=== PATIENT | female | born 2000 | race African-American/Black ===

== ENCOUNTER 2024-06-02 09:13 | Emergency (ER) | payer MEDICAID, SELFPAY ==
[2024-06-02 09:33] VITALS: BP 114/68; PULSE 73; RESP 18; TEMP 36.3; O2SAT 100
--- NOTE | 2024-06-02 10:42 | ED.GENADULT ---
HPI - General Adult General Chief complaint: Skin/Abscess/Foreign Body Stated complaint: Skin/Abscess/Foreign Body Source: patient Mode of arrival: ambulatory Limitations: no limitations History of Present Illness HPI narrative: Patient presents for evaluation of skin lesions to her suprapubic region and buttocks. Symptom onset about 1 week ago. She reports a small amount of sanguinous drainage from one of the suprapubic once yesterday. Denies drainage from the other areas. No fever, chills, nausea, vomiting. She is not diabetic. Family history of hydradenitis suppurativa. Denies personal history of HS. Related Data Home Medications ?Medication ?Instructions ?Recorded ?Confirmed ?Last Taken ?Type hydroxyzine HCl 25 mg tablet mg 06/02/24 Unknown History sertraline 100 mg tablet mg 06/02/24 Unknown History Allergies Allergy/AdvReac Type Severity Reaction Status Date / Time No Known Allergies Allergy Verified 06/02/24 09:39 Review of Systems Review of Systems: CONSTITUTIONAL: Denies fever, chills, or sweats. EYES: Denies visual changes, redness, or discharge. ENT: Denies rhinorrhea, congestion, sore throat, or otalgia. CARDIOVASCULAR: Denies chest pain, palpitations, or edema. RESPIRATORY: Denies cough or dyspnea. GASTROINTESTINAL: Denies abdominal pain, nausea, vomiting, or diarrhea. GENITOURINARY: Denies dysuria or hematuria. SKIN: Reports skin lesions to suprapubic region and buttocks MUSCULOSKELETAL: Denies back pain, joint pain, or myalgia. NEUROLOGIC: Denies headache, numbness, dizziness, or weakness. PSYCHIATRIC: Denies anxiety or depression. [facility] Past Medical History Medical History Anxiety Autism Surgical History Surgical History No pertinent past surgical history Family History Family History Mother Family history unknown Social History Social History Smoking status: Never smoker Living arrangements: with family Gender identity (if verbalized by the patient): Female Exam Narrative: GENERAL: Well-appearing, well-nourished, and in no acute distress. HEAD: Normocephalic, atraumatic. EYES: PERRLA and EOMI. ENT: Nares clear, no rhinorrhea or epistaxis. Mucous membranes moist. Oropharynx without tonsillar hypertrophy exudate or other lesions. Bilateral TMs pearly shetty nonbulging NECK: Supple. No adenopathy or masses. No carotid bruits or JVD CHEST: Clear to auscultation. No respiratory distress. No wheezes rales or rhonchi HEART: Regular rate and rhythm. No murmur heard. Normal peripheral pulses. ABDOMEN: Soft, nontender, nondistended, normal active bowel sounds. EXTREMITIES: Normal range of motion. No edema. SKIN: There are several firm indurated nodules noted to suprapubic region and left buttock, some of which have associated erythema. No drainage present NEURO: No focal deficits. Alert and oriented x3. PSYCH: Normal mood and affect. Course Course Emergency Course: This is a 24-year-old female who presented for evaluation of indurated nodules to the suprapubic region and left buttock. These appear to be areas of folliculitis some of which are infected. Will discharge with Bactrim and Keflex. She already has chlorhexidine with which she can wash her skin at home. Follow up with PCP. Go to the ER for worsening symptoms. Pt in agreement with plan of care. Level of Care: Express Care Visit Vital Signs Vital signs: Vital Signs Temperature 36.3 C L 06/02/24 09:33 Pulse Rate 73 06/02/24 09:33 Respiratory Rate 18 06/02/24 09:33 Blood Pressure 114/68 06/02/24 09:33 Pulse Oximetry 100 06/02/24 09:33 Oxygen Delivery Room Air 06/02/24 09:33 Temperature 36.3 C L 06/02/24 09:33 Pulse Rate 73 06/02/24 09:33 Respiratory Rate 18 06/02/24 09:33 Blood Pressure 114/68 06/02/24 09:33 Pulse Oximetry 100 06/02/24 09:33 Oxygen Delivery Room Air 06/02/24 09:33 Medical Decision Making Vital Signs Vital Signs: Vital Signs Temperature 36.3 C L 06/02/24 09:33 Pulse Rate 73 06/02/24 09:33 Respiratory Rate 18 06/02/24 09:33 Blood Pressure 114/68 06/02/24 09:33 Pulse Oximetry 100 06/02/24 09:33 Oxygen Delivery Room Air 06/02/24 09:33 Temperature 36.3 C L 06/02/24 09:33 Pulse Rate 73 06/02/24 09:33 Respiratory Rate 18 06/02/24 09:33 Blood Pressure 114/68 06/02/24 09:33 Pulse Oximetry 100 06/02/24 09:33 Oxygen Delivery Room Air 06/02/24 09:33 Discharge Plan Discharge Clinical Impression: Folliculitis Patient Disposition: Home, Self-Care Condition: Stable Instructions: Antibiotic Form, Folliculitis (ED) Patient Language: Chinese Prescriptions: New sulfamethoxazole-trimethoprim [Bactrim DS] 800-160 mg tablet 1 tablet PO Q12H Qty: 20 0RF cephalexin 500 mg capsule 500 mg PO Q6H Qty: 40 0RF No Action sertraline 100 mg tablet hydroxyzine HCl 25 mg tablet Follow-up/Referrals: Jd Navarro MD [Physician] - Time of Disposition: 10:35
== END 2024-06-02 10:39 | disposition home or self-care (01) ==
PROVIDERS: Emergency Provider Nurse Practitioner
DX: L73.9 Follicular disorder, unspecified (principal); Z79.899 Other long term (current) drug therapy
CPT/HCPCS: 99203; G0463

== ENCOUNTER 2024-08-31 10:19 | Emergency (ER) | payer BC, OTHER, SELFPAY ==
[2024-08-31 10:28] VITALS: BP 134/73; PULSE 82; RESP 16; TEMP 36.6; O2SAT 100
--- OUTSIDE RECORDS SUMMARY | 2024-08-31 11:30 | XMS_ITS | Clinical Summary ---
Author Organization [facility] Address [address] [place] [address] Care Team Providers Care Senior Animal Trainer Name Role Phone Kimberly Hui MD Primary Care Provider + Allergies Active Allergy Reactions Criticality Noted Date Comments Shellfish-Derived Products Anaphylaxis,F atigue,Hives,I tching,Rash High 10/22/2011 Medications sertraline (ZOLOFT) 100 MG tablet Take 1 tablet (100 mg total) by mouth daily. 08/23/2023 Active hydrOXYzine (ATARAX) 25 MG tablet Take 1 tablet (25 mg total) by mouth every 6 (six) hours as needed for Anxiety. Active drospirenone-eth inyl estradiol 3-0.02 MG tabletIndication s:Hidradenitis suppurativa Take 1 tablet by mouth daily. Skip placebo pills 90 tablet 4 06/24/2024 09/18/19 26 Active cariprazine (VRAYLAR) 1.5 MG capsuleIndicatio ns:Moderate episode of recurrent major depressive disorder (CMS/HCC) Take 1 capsule (1.5 mg total) by mouth daily. 90 capsule 3 06/24/2024 06/24/19 26 Active Active Problems Problem Noted Date Diagnosed Date Prediabetes 07/07/2024 Attention deficit disorder 06/24/2024 Moderate episode of recurrent major depressive d isorder 06/24/2024 Overview (06/24/2024): No hx of bipolar. Neuropscyh testing completed in 2020. Confirmed diagnosis ADD, depression, anxiety, autism, mild cognitive impairment. Taking zoloft since 07/2023. Tried aripiprazole. Not feeling any improvement. Has also tried fluoxetine, abilify. Had tried each of them at least 8 months in [id number]. Assessment & Plan (06/24/2024 9:25 AM STAGE DRIVER): Chronic. Not controlled. Failed multiple medications including SSRIs sertraline, fluoxetine, Abilify which each been taken for more than 8 months. Will trial Vraylar. She does have new insurance starting in July in case her current insurance does not cover well. Mild cognitive impairment 06/24/2024 Morbid obesity 06/24/2024 PCOS (polycystic ovarian syndrome) 06/24/2024 Overview (06/24/2024): Believes she had an ultrasound. Autism ([facility]) 10/22/2020 Overview (06/24/2024): I was diagnosed in 2020 Hidradenitis suppurativa 06/24/2016 Overview (06/24/2024): New cysts forming in the groin and beneath the breasts periodically. Has not been treated in the past. Assessment & Plan (06/24/2024 9:26 AM STAGE DRIVER): Discussed doxycycline is mainstay treatment however she declines that currently as she would prefer to be off antibiotics she is open to hormonal treatment. Trial Neeta. H/O gastric sleeve 12/22/2014 Overview (06/24/2024): 2014. Encounters Date Type Department Care Team Description 07/06/2024 7:30 AM STAGE DRIVER Laboratory Only [facility] [address] [place] [address] Kimberly Hui MD 07/06/2024 MyChart Message Enc [facility] [address] [place], [place] [phone] Kimberly Hui MD Triglycerides 07/06/2024 Travel 06/29/2024 MyChart Message Enc [address] [place] [address] Kimberly Hui MD HPV Vaccine 06/24/2024 8:50 AM STAGE DRIVER Office Visit [address] [place] [address] Kimberly Hui MD New Patient (Here to get established. ); Psychiatric Problem (She states that she is having mental issues. She had to move back in with her parent. ); Lump (Pt is getting boils around her waist line and pubic area. Hx of these. ) 06/24/2024 Travel from Last 3 Months Immunizations Name Administration Dates Next Due Tdap (Generic) 05/26/2021 Family History Medical History Relation Comments Alcohol Abuse Father Depression Father Diabetes Father Hypertension Father Mental Health Father Arthritis Maternal Grandmother Diabetes Maternal Grandmother Alcohol Abuse Mother Asthma Mother Early Hearing Loss Mother Miscarriages / Stillbirths Mother Stroke Paternal Grandmother Drug Abuse Paternal Uncle 1 Vision loss Paternal Uncle 1 Retardation/Learning Difficulties Paternal Uncle 2 Alcohol Abuse Sister 1 Depression Sister 2 Relation Status Comments Father Alive Maternal Grandmother Mother Alive Paternal Grandmother Paternal Uncle 1 Paternal Uncle 2 Sister 1 Alive Sister 2 Alive Social History Tobacco Use Types Packs/Day Years Used Date Smoking Tobacco: Never Passive Smoke Exposure: Past Smokeless Tobacco: Never Tobacco Cessation:Counseling Given: No Alcohol Use Standard Drinks/Week Comments Never 0 (1 standard drink = 0.6 oz pur e alcohol) PHQ-2 Answer Date Recorded Patient Health Questionnaire-2 Score 5 06/24/2024 Comments Unknown Sex and Gender Information Value Date Recorded Sex Assigned at Not on file Legal Sex Female 2:46 PM STAGE DRIVER Gender Identity Female 05/13/2024 1:38 PM STAGE DRIVER Sexual Orientation Bisexual 05/13/2024 1: 38 PM STAGE DRIVER Occupation Industry Job Start Date Job End Date [employer] Not on file Not on file No t on file Last Filed Vital Signs Vital Sign Reading Time Taken Comments Blood Pressure 131/78 06/24/2024 8:42 AM STAGE DRIVER Pulse 89 06/24/2024 8:42 AM STAGE DRIVER Temperature 36.7 C (98 F) 06/24/2024 8:42 AM STAGE DRIVER Respiratory Rate 18 05/10/2024 2:50 PM STAGE DRIVER Oxygen Saturation 100% 06/24/2024 8: 42 AM STAGE DRIVER Inhaled Oxygen Concentration - - Weight 133.7 kg (294 lb 12.8 oz) 06/24/2024 8:42 AM STAGE DRIVER Height 162.6 cm (5' 4 ) 06/24/2024 8:42 AM STAGE DRIVER Body Mass Index 50.6 06/24/2024 8:42 AM STAGE DRIVER Plan of Treatment Upcoming Encounters Date Type Department Care Team (Late st Contact Info) Description 09/24/2024 11:30 AM CDT Office Visit [facility] [place] [address] [place], [place] [phone] Kimberly Hui MD [address] [place], [place] [phone] Health Maintenance Due Date Last Done Comments HPV Vaccines (1 - 3-dose series) 2013 Hepatitis C 01/14/2016 Hepatitis B Vaccines (1 of 3 - 19+ 3-dose series) 2017 COVID-19 Vaccine (2023-2 5 season) 2024 Annual Physical 06/24/2025 06/24/2024 Cervical Cancer Screening Pa p Smear (Age 21 to 29) Every 3 Years 06/25/2026 06/25/2023, 10/29/2022 Cervical Cancer Screening 06/25/2026 DTaP, Tdap and Td Vaccines ( 2 - Td or Tdap) 05/26/2031 05/26/2021 PHQ-2 (Physician [place]) Completed 06/24/2024 Meningococcal B Vaccine Aged Out No l onger eligible based on patient's age to complete this topic Meningococcal Vaccine Aged Out No akira lizeth eligible based on patient's age to complete this topic Pneumococcal Vaccine: Pediatrics (0 to 5 Years) and At-Risk Patients (6 to 64 Years) Aged Out No longer eligible b ased on patient's age to complete this topic RSV Immunizations Under 20 Months Aged Out No longer eligible b ased on patient's age to complete this topic Procedures Procedure Name Priority Date/Time Associated Diagnosis Comments HEMOGLOBIN, GLYCOSYLATED Routine 07/06/2024 7:51 AM STAGE DRIVER Routine general medical examination at a health care facility LIPID PANEL Routine 07/06/2024 7:51 AM STAGE DRIVER Routine general medical examination at a health care facility COLLECTION VENOUS BLOOD VENIPUNCTURE Routine 07/06/2024 7:50 AM STAGE DRIVER Routine general medical examination at a health care facility COMPREHENSIVE METABOLIC PANEL Routine 07/06/2024 7:50 AM STAGE DRIVER Routine general medical examination at a [facility] care facility VITAMIN B-12 Routine 07/06/2024 7:50 AM STAGE DRIVER Routine general medical examination at a [facility] care facility TSH W/REFLEX Routine 07/06/2024 7:50 AM STAGE DRIVER Routine general medical examination at a [facility] care facility CBC W/DIFF AUTOMATED Routine 07/06/2024 7:50 AM STAGE DRIVER H/O gastric sleeve from Last 3 Months Results * (ABNORMAL) HEMOGLOBIN, GLYCOSYLATED (07/06/2024 7:51 AM STAGE DRIVER) [facility] HGB A1C 5.7 4.5 - 6.2 % 07/06/2024 4:55 PM STAGE DRIVER [facility] ESTIMATED AVG GLUCOSE 117(H) 74 - 106 MG/DL 07/06/2024 4:55 PM STAGE DRIVER [facility] 07/06/2024 7:51 AM STAGE DRIVER us Kimberly Hui MD LABORATORY Final Re sult [facility] [address] [place] [address], [place] [phone] * LIPID PANEL (07/06/2024 7:51 AM STAGE DRIVER) [facility] CHOLESTEROL 166 <200 MG/DL 07/06/2024 2:58 PM STAGE DRIVER [facility] TRIGLYCERIDES 58 <150 MG/DL 07/06/2024 2:58 PM STAGE DRIVER [facility] HDL 58 >40 MG/DL 07/06/2024 2:58 PM STAGE DRIVER [facility] LDL-C 96 <100 MG/DL 07/06/2024 2:58 PM STAGE DRIVER [facility] VLDL CALCULATION 12 5 - 28 MG/DL 07/06/2024 2:58 PM STAGE DRIVER [facility] CHOL/HDL RATIO 2.9 0.0 - 4.0 07/06/2024 2:58 PM STAGE DRIVER [facility] LDL/HDL 1.7 0.41 - 2.13 07/06/2024 2:58 PM STAGE DRIVER [facility] NON HDL CHOLESTEROL 108 <140 MG/DL 07/06/2024 2:58 PM STAGE DRIVER [facility] 07/06/2024 7:51 AM STAGE DRIVER Kimberly Hui MD LABORATORY Final Re sult [facility] [address] [place] [address], [place] [phone] * TSH W/REFLEX (07/06/2024 7:50 AM STAGE DRIVER) TSH 0.999 0.358 - 3.740 uIU/ML 07/06/2024 3:39 PM STAGE DRIVER [facility] 07/06/2024 7:50 AM STAGE DRIVER Kimberly Hui MD LABORATORY Final Re sult [facility] [address] [place] [address], [place] [phone] * VITAMIN B-12 (07/06/2024 7:50 AM STAGE DRIVER) VITAMIN B12 S/P/B 570 193 - 986 PG/ML 07/06/2024 3:39 PM STAGE DRIVER [facility] 07/06/2024 7:50 AM STAGE DRIVER us Kimberly Hui MD LABORATORY Final Re [facility]ult [facility] [place] [address] [place] [address], * (ABNORMAL) COMPREHENSIVE METABOLIC PANEL (07/06/2024 7:50 AM STAGE DRIVER) SODIUM S/P/B 141 136 - 145 MMOL/L 07/06/2024 3:39 PM STAGE DRIVER [facility] POTASSIUM S/P/B 4.3 3.5 - 5.1 MMOL/L 07/06/2024 3:39 PM STAGE DRIVER [facility] CHLORIDE S/P/B 105 98 - 107 MMOL/L 07/06/2024 3:39 PM STAGE DRIVER [facility] CO2 28.2 21 - 32 MMOL/L 07/06/2024 3:39 PM STAGE DRIVER [facility] GLUCOSE 102(H) 70 - 99 MG/DL 07/06/2024 3:39 PM STAGE DRIVER [facility] BUN 7 7 - 18 MG/DL 07/06/2024 3:39 PM STAGE DRIVER [facility] CREATININE S/P/B 0.80 0.55 - 1.02 MG/DL 07/06/2024 3:39 PM STAGE DRIVER [facility] CALCIUM S/P/B 8.8 8.4 - 10.5 MG/DL 07/06/2024 3:39 PM STAGE DRIVER [facility] BILIRUBIN TOTAL S/P/B 0.2 0.2 - 1.0 MG/DL 07/06/2024 3:39 PM STAGE DRIVER [facility] [place] ALKALINE PHOSPHATASE S/P/B 49 37 - 98 U/L 07/06/2024 3:39 PM [facility] [place] AST 26 15 - 37 U/L 07/06/2024 3:39 PM [facility] [place] ALT 47 14 - 59 U/L 07/06/2024 3:39 PM [facility] TOTAL PROTEIN S/P/B 6.8 6.4 - 8.2 G/DL 07/06/2024 3:39 PM [facility] [place] ALBUMIN S/P/B 3.3(L) 3.4 - 5.0 G/DL 07/06/2024 3:39 PM [facility] ANION GAP 7.8 5 - 15 MMOL/L 07/06/2024 3:39 PM [facility] Comment:REFERENCE RANGE NOT ESTABLISHED OSMOLALITY (CALC) 290 MOSM/KG 025 3:39 PM [facility] Comment:REFERENCE RANGE NOT ESTABLISHED GFR ESTIMATE >90 >90 ML/MIN/1. 73 M2 07/06/2024 3:39 PM [facility] GFR NOTES GFR REFERENCE S: 07/06/2024 3:39 PM [facility] [place] Comment: THE ESTIMATED GFR IS CALCULATED USING THE 2020 CKD-EPI EQUATION. THE FOLLOWING CATEGORIES FOR GRADING RENAL FUNCTION ARE RECOMMENDED BY THE INTERNATIONAL SOCIETY OF NEPHROLOGY (KDIGO 2012 CLINICAL PRACTICE GUIDELINE). G1,NORMAL OR HIGH: >89 ml/min/1.73 m2 G2,MILDLY DECREASED: 60-89 ml/min/1.73 m2 G3A,MILDLY TO MODERATELY DECREASED: 45-59 ml/min/1.73 m2 G3B,MODERATELY TO SEVERELY DECREASED: 30-44 ml/min/1.73 m2 G4,SEVERELY DECREASED: 15-29 ml/min/1.73 m2 G5,KIDNEY FAILURE: <15 ml/min/1.73 m2 07/06/2024 7:50 AM STAGE DRIVER Kimberly Hui MD LABORATORY Final Re sult [facility] [place] [address] [place] [address], * (ABNORMAL) CBC W/DIFF AUTOMATED (07/06/2024 7:50 AM STAGE DRIVER) WBC 3.22(L) 4.00 - 10.80 x10'3/uL 07/06/2024 4:15 PM STAGE DRIVER [facility] RBC 4.07(L) 4.10 - 5.40 x10'6/uL 07/06/2024 4:15 PM STAGE DRIVER [facility] HGB 11.8(L) 12.0 - 16.0 G/DL 07/06/2024 4:15 PM STAGE DRIVER [facility] HCT 36.4 36.0 - 47.0 % 07/06/2024 4:15 PM STAGE DRIVER [facility] MCV 89.4 78.0 - 100.0 FL 07/06/2024 4:15 PM STAGE DRIVER [facility] MCH 29.0 27.0 - 31.0 PG 07/06/2024 4:15 PM STAGE DRIVER [facility] MCHC 32.4(L) 33.0 - 36.0 G/DL 07/06/2024 4:15 PM STAGE DRIVER [facility] RDW 12.9 11.5 - 14.5 % 07/06/2024 4:15 PM STAGE DRIVER [facility] PLT 318 150 - 350 x10'3/uL 07/06/2024 4:15 PM [facility] MPV 10.4 7.4 - 10.4 FL 07/06/2024 4:15 PM STAGE DRIVER [facility] IMMATURE GRANS % 0.0 % 07/06/19 25 4:23 PM STAGE DRIVER [facility] NEUTROPHILS % 42.6 % 07/06/2024 4:23 PM [facility] EOSINOPHILS % 1.9 % 07/06/2024 4:23 PM [facility] BASOPHILS % 1.2 % 07/06/2024 4:23 PM [facility] LYMPHOCYTES % 44.7 % 07/06/2024 4:23 PM [facility] MONOCYTES % 9.6 % 07/06/2024 4:23 PM [facility] ABS. NEUTROPHILS 1.37(L) 1.60 - 8.30 x10'3/uL 07/06/2024 4:23 PM [facility] ABS. IMMATURE GRANULOCYTES 0.00 0.00 - 0.03 x10'3/uL 07/06/2024 4:23 PM [facility] ABS. EOSINOPHILS 0.06 0.00 - 0.40 x10'3/uL 07/06/2024 4:23 PM [facility] ABS. BASOPHILS 0.04 0.00 - 0.20 x10'3/uL 07/06/2024 4:23 PM [facility] ABS. LYMPHOCYTES 1.44 0.80 - 4.70 x10'3/uL 07/06/2024 4:23 PM [facility] ABS. MONOCYTES 0.31 0.00 - 1.50 x10'3/uL 07/06/2024 4:23 PM [facility] RBC MORPHOLOGY NORMAL 07/06/2024 4:23 PM [facility] PLT MORPH. NORMAL 07/06/2024 4:23 PM [facility] PLT EST. NORMAL x10'3/uL 07/06/2024 4:23 PM [facility] Comment:Few large Platelets present. DIFFERENTIAL TYPE AUTO-DIFF VERIFIED BY BLOOD SMEAR SCAN. 07/06/2024 4:23 PM [facility] 07/06/2024 7:50 AM STAGE DRIVER us Kimberly Hui MD LABORATORY Final Re sult [facility] [address] [place] [address], [place] [phone] from Last 3 Months Insurance [facility] Care Teams Senior Animal Trainer Relationship Specialty Start Date End Date Kimberly Hui MD [address] [address] PCP - General FAMILY PRACTICE 06/24/24
--- OUTSIDE RECORDS SUMMARY | 2024-08-31 11:30 | XMS_ITS | Encounter Summary ---
Author Organization [facility] Address [address] [place] [id number] Care Team Providers Care Employment Advisor Name Role Phone Kimberly Hui MD Primary Care Provider + Encounter Details Date Type Department Care Team (Late st Contact Info) Description 07/06/2024 MyChart Message Enc [facility] [address] [place] [phone] Kimberly Hui MD [address] [place] [phone] Triglycerides Social History Tobacco Use Types Packs/Day Years Used Date Smoking Tobacco: Never Passive Smoke Exposure: Past Smokeless Tobacco: Never Alcohol Use Standard Drinks/Week Comments Never 0 (1 standard drink = 0.6 oz pur e alcohol) PHQ-2 Answer Date Recorded Patient Health Questionnaire-2 Score 5 06/24/2024 Comments Unknown Sex and Gender Information Value Date Recorded Sex Assigned at Not on file Legal Sex Female 2:46 PM CHILD NUTRITION ASSISTANT Gender Identity Female 05/13/2024 1:38 PM CHILD NUTRITION ASSISTANT Sexual Orientation Bisexual 05/13/2024 1: 38 PM CHILD NUTRITION ASSISTANT Occupation Industry Job Start Date Job End Date [employer] Not on file Not on file No t on file documented as of this encounter Plan of Treatment Upcoming Encounters Date Type Department Care Team (Late st Contact Info) Description 09/24/2024 11:30 AM CDT Office Visit [facility] [address] [place] [phone] Kimberly Hui MD [address] [place], [place] [address] documented as of this encounter Visit Diagnoses Not on filedocumented in this encounter Additional Health Concerns Assessment Noted Time PHQ-9 Depression Total Score: 19 025 10:50 AM CHILD NUTRITION ASSISTANT documented as of this encounter Care Teams Employment Advisor Relationship Specialty Start Date End Date Kimberly Hui MD [address] [place] [address] PCP - General FAMILY PRACTICE 06/24/24 documented as of this encounter
--- OUTSIDE RECORDS SUMMARY | 2024-08-31 11:30 | XMS_ITS | Continuity of Care Document ---
Author Organization [facility] Address [address] [place] [address] Phone Care Team Providers Care Freedom Of Information Officer Name Role Phone Yolanda Cerna PA-C Unavailable Unavailabl e Allergies, Adverse Reactions, Alerts Substance Reaction Status Criticality shellfish derived Unknown Active Unable to Assess Medications Medication Instructions Dosage Effective Dates (start - stop) Status Comments sertraline 100 mg tablet take 1 tablet by oral route every day 100 MG - Active hydroxyzine HCl 25 mg tablet take 1/2 to 2 tablets by oral route as needed for anxiety or difficulty sleeping. Max 4 tablets per day. - Active VITAMINS (unknown strength) Not Available - Active Procedures Procedure Date Case management OFFICE/OUTPATIENT VISIT, EST Telehealth Video Visit PSYTX, 30 MIN W/PT Telehealth Video Visit PSYTX, 45 MIN W/PT Telehealth Video Visit PSYTX, 30 MIN W/PT Telehealth Video Visit PSYTX, 45 MIN W/PT Telehealth Audio Visit Telehealth Video Visit OFFICE/OUTPATIENT VISIT, EST Telehealth Video Visit PSYTX, 45 MIN W/PT Telehealth Video Visit PSYTX, 45 MIN W/PT Case management PSYTX, 45 MIN W/PT Telehealth Video Visit Telehealth Video Visit OFFICE/OUTPATIENT VISIT, EST Telehealth Video Visit PSYTX, 45 MIN W/PT Case Management 15 Minutes Case management Telehealth Video Visit PSYTX, 45 MIN W/PT Telehealth Video Visit PSYCH DIAG EVAL W/MED SRVCS Case management Telehealth Video Visit PSYTX, 45 MIN W/PT PSYTX, 45 MIN W/PT Telehealth Video Visit PSYTX, 45 MIN W/PT Telehealth Video Visit Self-help/peer svc per 15min Telehealth Audio Visit OFFICE/OUTPATIENT VISIT, EST PSYTX, 45 MIN W/PT Telehealth Video Visit PSYTX, 60 MIN W/PT Telehealth Video Visit PSYTX, 60 MIN W/PT Telehealth Video Visit Enc Recon Telehealth Video Visit PSYCH DIAG EVAL W/MED SRVCS PSYTX, 45 MIN W/PT Telehealth Video Visit PSYTX, 60 MIN W/PT Telehealth Video Visit Telehealth Video Visit PSYCH DIAGNOSTIC EVALUATION PSYTX, 30 MIN W/PT Telehealth Video Visit PSYTX, 30 MIN W/PT Telehealth Video Visit CMVC Case Managment (less than 8 minutes ) Telehealth Video Visit OFFICE/OUTPATIENT VISIT, EST PSYTX, 45 MIN W/PT Telehealth Video Visit PSYTX, 45 MIN W/PT Telehealth Video Visit Telehealth Video Visit OFFICE/OUTPATIENT VISIT, EST Telehealth Video Visit OFFICE/OUTPATIENT VISIT, EST PSYTX, 45 MIN W/PT Telehealth Video Visit Telehealth Video Visit OFFICE/OUTPATIENT VISIT, EST PSYTX PT&/FAMILY 45 MINUTES Telehealth Video Visit PSYTX PT&/FAMILY 45 MINUTES Telehealth Video Visit Telehealth Video Visit OFFICE/OUTPATIENT VISIT, EST Telehealth Video Visit OFFICE/OUTPATIENT VISIT, EST PSYTX PT&/FAMILY 45 MINUTES Telehealth Video Visit CM[facility] (less than 8 minutes) Telehealth Video Visit OFFICE/OUTPATIENT VISIT, EST PSYTX PT&/FAMILY 45 MINUTES Telehealth Video Visit PSYTX PT&/FAMILY 45 MINUTES Telehealth Video Visit IMMUNIZATION ADMIN FLU VACCINE QUADRIVALENT >3YRS Preservat munira Free OFFICE/OUTPATIENT VISIT, EST STREP A ASSAY W/OPTIC PSYTX PT&/FAMILY 30 MINUTES Telehealth Video Visit PSYTX PT&/FAMILY 30 MINUTES Telehealth Video Visit PSYTX PT&/FAMILY 30 MINUTES Telehealth Video Visit PSYTX PT&/FAMILY 45 MINUTES Telehealth Video Visit Telehealth Audio Visit Telehealth Video Visit Telehealth Audio Visit OFFICE/OUTPATIENT VISIT, EST PSYTX PT&/FAMILY 45 MINUTES Telehealth Video Visit OFFICE/OUTPATIENT VISIT, EST STREP A ASSAY W/OPTIC SARS Telehealth Video Visit PSYCH DIAG EVAL W/MED SRVCS Telehealth Video Visit PSYCH DIAGNOSTIC EVALUATION OFFICE/OUTPATIENT VISIT, [facility] Advance Directives Directive Yes / No Effective Date File Name No Information Encounters Encounter Description Practice Location Reason(s) For Visit Diagnoses Date Provider Providers Copied on Encounter [facility], [address], [place], [address] , [place] [phone] [place] Major depression, recurrent, chronic Sep- 4 Eryn Guerrero. [address], [place], [address], [place]. tel:[phone] [facility], [address] [place] [address], [id number] , [place] tel:[phone] [facility] Major depression, recurrent, chronic Oct- 4 Terry Tobar. [address], [place], [address], [place]. tel:[phone] Referring Provider: Yolanda Cerna, [address] [place], [address]. tel:[phone] OFFICE/OUTPA TIENT VISIT, EST [facility], [address], [address] , [place] tel: [phone] [place] med management (chief complaint) Major depressive disorder, recurrent, moderateGener alized anxiety disorderAutis m spectrum disorderAtten tion-deficit hyperactivity disorder, predominantly inattentive typePersonal history of psychological abuse in childhood 4 Eryn Guerrero. [address] [facility], [place], [address], [place]. tel:[phone] PSYTX, 30 MIN W/PT [facility], [address], [place], [place], [address] , [place] tel: [phone] [place] Major depressive disorder, recurrent, moderateSibli ng Relational ProblemGenera lized anxiety disorder 4 Pool Brown. [address], [place], [place], [address], [place]. tel:[phone] PSYTX, 45 MIN W/PT [facility], [address], [place], [place], [address] , [place] tel: [phone] [place] Generalized anxiety disorderPerso nal history of psychological abuse in childhood 4 Pool Brown. [address], [place], [place], [address], [place]. tel:[phone] PSYTX, 30 MIN W/PT [facility], [address], [place], [place], [address] , [place] tel: [phone] [place] Generalized anxiety disorder 4 Pool Brown. [address], [place], [place], [address], [place]. tel:[phone] PSYTX, 45 MIN W/PT [facility], [address], [place], [place], [address] , [place] tel: [phone] [place] Generalized anxiety disorderPerso nal history of psychological abuse in childhood 4 Pool Brown. [address], [place], [place], [address], [place]. tel:[phone] OFFICE/OUTPA TIENT VISIT, EST [facility], [address], [place], [place], [address] , [place] tel:[phone] [place] med management (chief complaint) Major depressive disorder, recurrent, moderateGener alized anxiety disorderAutis m spectrum disorderAtten tion-deficit hyperactivity disorder, predominantly inattentive typePersonal history of psychological abuse in childhood 4 Eryn Guerrero. [address], [place], [address], [place]. tel:[phone] PSYTX, 45 MIN W/PT [facility], [address], [place], [place], [address] , [place] tel:[phone] [place] Major depressive disorder, recurrent, moderateSibli ng Relational ProblemAutism spectrum disorderAtten tion-deficit hyperactivity disorder, predominantly inattentive type 4 Pool Brown. [address], [place], [place], [address], [place]. tel:[phone] Referring Provider: Haydee Viera, [address] [place], [address]. tel:[phone] PSYTX, 45 MIN W/PT [facility], [address], [place], [place], [address] , [place] [phone] [place] Major depressive disorder, recurrent, moderatePerso nal history of psychological abuse in childhood 4 Pool Brown. [address], [place], [place], [address], [place]. tel:[phone] Referring Provider: Yolanda Cerna, [address] [place], [address]. tel:[phone] [facility], [address], [place], [place], [address] , [place] tel:[phone] [place] FFS Major depressive disorder, recurrent, moderate Apr- 4 Ansures De Jimenez Dania. [address], [place], [address], [place]. [phone] Referring Provider: Zee Cash, [address] [place], [address]. tel:[phone] PSYTX, 45 MIN W/PT [facility], [address], [place], [place], [address] , [place] tel:[phone] [place] Major depressive disorder, recurrent, moderatePerso nal history of psychological abuse in childhood Apr-06 27- 4 Pool Brown. [address], [place], [place], [address], [place]. [phone] OFFICE/OUTPA TIENT VISIT, EST [facility], [address], [place], [place], [address] , [place] tel:[phone] [place] med management (chief complaint) Major depressive disorder, recurrent, moderateGener alized anxiety disorderAtten tion deficit hyperactivity disorder (ADHD), unspecified ADHD typeAutism spectrum disorderPerso nal history of psychological abuse in childhood Aug- 4 Eryn Guerrero. [address], [place], [address], [place]. tel:[phone] PSYTX, 45 MIN W/PT [facility], [address], [place], [place], [address] , [place] [phone] [place] Major depressive disorder, recurrent, moderate Apr- 4 Pool Brown. [address], [place], [place], [address], [place]. tel:[phone] Referring Provider: Haydee Viera, [address] [place], [address]. tel:[phone] [facility], [address], [place], [place], [address] , [place] tel:[phone] [facility] FFS Major depressive disorder, recurrent, moderate Apr-1 0-202 4 Ansures De Jimenez Dania. [address], [place], [address], [place]. tel:[phone] Referring Provider: Zee Cash, [address] [place], [address]. tel:[phone] [facility], [address], [place], [place], [address] , [place] [phone] [facility] FFS Major depressive disorder, recurrent, moderate Apr-0 9-202 4 Ansures De Jimenez Dania. [address], [place], [address], [place]. tel:[phone] Referring Provider: Yolanda Cerna, [address] [place], [address]. tel:[phone] PSYTX, 45 MIN W/PT [facility], [address], [place], [place], [address] , [place] [phone] [place] Major depressive disorder, recurrent, moderateAutis m spectrum disorder Apr-0 8-202 4 Pool Brown. [address], [place], [place], [address], [place]. tel:[phone] PSYCH DIAG EVAL W/MED SRVCS [facility], [address], [place], [place], [address] , [place] [phone] [place] psychiatric evaluation and consult (chief complaint) Major depressive disorder, recurrent, moderateGener alized anxiety disorderAtten tion-deficit hyperactivity disorder, predominantly inattentive typeAutism spectrum disorderSenso ry processing difficultyPer kandace history of psychological abuse in childhood Apr-0 5- 4 Eryn Guerrero. [address], [place], [address], [place]. tel:[phone] [facility], [address], [place], [place], [address] , [place] tel:[phone] [facility] FFS Major depressive disorder, recurrent, moderate Apr-0 2- 4 Ansures De Tony Najera. [address], [place], [address], [place]. tel:[phone] Referring Provider: Zee Cash, [address] [place], [address]. tel:[phone] PSYTX, 45 MIN W/PT [facility], [address], [place], [place], [address] , [place] tel:[phone] [place] Major depressive disorder, recurrent, moderateGener alized anxiety disorder Apr-0 4 Pool Brown. [address], [place], [place], [address], [place]. tel:[phone] Referring Provider: Shawn William, [address], [place], [address]. tel:[phone] [facility], [address], [place], [place], [address] , [place] tel:[phone] [place] Major depressive disorder, recurrent, moderateAutis m spectrum disorderGener alized anxiety disorder Nov- 3 Pool Brown. [address], [place], [place], [address], [place]. tel:[phone] PSYTX, 45 MIN W/PT [facility], [address], [place], [place], [address] , [place] tel:[phone] [place] Major depressive disorder, recurrent, moderateAutis m spectrum disorder 3 Lanza Stephanie. [address], [place], [place], [address], [place]. tel:[phone] Referring Provider: Haydee Viera, [facility] [place], [address]. tel:[phone] PSYTX, 45 MIN W/PT [facility], [address], [place], [place], [address] , [place] tel:[phone] [place] Autism spectrum disorderMajor depressive disorder, recurrent, moderate 3 Pool Stephanie. [address], [place], [place], [address], [place]. tel:[phone] Referring Provider: Haydee Viera, [facility] [place], [address]. tel:[phone] [facility], [address], [place], [place], [address] , [place] tel:[phone] [facility] [place] [facility] FFS Adjustment disorder with mixed anxiety and depressed moodAttention -deficit hyperactivity disorder, predominantly inattentive typeAutism spectrum disorderDiffi culty controlling angerGenerali zed anxiety disorderPerso nal history of psychological abuse in childhood 3 Jayson Jamison. [address], [place], [address], [place]. tel:[phone] Referring Provider: Omer Jennings, [address] [place], [address]. tel:[phone] OFFICE/OUTPA TIENT VISIT, EST [facility], [address], [place], [place], [address] , [place] tel:[phone] [place] Medication Follow Up (chief complaint) Adjustment disorder with mixed anxiety and depressed moodAttention -deficit hyperactivity disorder, predominantly inattentive typeAutism spectrum disorderDiffi culty controlling angerGenerali zed anxiety disorderPerso nal history of psychological abuse in childhood 3 Michaela Tello. [address], [place], [address], [place]. tel:[phone] Referring Provider: Omer Jennings, [address] [place], [address]. tel:[phone] PSYTX, 45 MIN W/PT [facility], [address], [place], [place], [address] , [place] tel:[phone] [place] Generalized anxiety disorderPerso nal history of psychological abuse in childhood 3 Pool Brown. [address], [place], [place], [address], [place]. tel:[phone] Referring Provider: Haydee Viera, [address] [place] [address], [address]. tel:[phone] PSYTX, 60 MIN W/PT [facility], [address], [place], [place], [address] , [place] tel:[phone] [place] Generalized anxiety disorderPerso nal history of psychological abuse in childhood 3 Pool Brown. [address], [place], [place], [address], [place]. tel:[phone] Referring Provider: Federica Millan, [address], [place], [address]. tel:[phone] PSYTX, 60 MIN W/PT [facility], [address], [place], [place], [address] , [place] tel:[phone] [place] Generalized anxiety disorderPerso nal history of psychological abuse in childhood 3 Pool Brown. [address], [place], [place], [address], [place]. tel:[phone] Referring Provider: Bruce Sigala, [address] [place] [address], [address]. tel:[phone] [facility], [address], [place], [place], [address] , [place] [phone] [facility] FFS Generalized anxiety disorderPerso nal history of psychological abuse in childhood 3 Jayson Jamison. [address], [place], [address], [place]. tel:[phone] Referring Provider: Omer Jennings, [address] [place], [address]. tel:[phone] PSYCH DIAG EVAL W/MED SRVCS [facility], [address], [place], [place], [address] , [place] [phone] [facility] Psychiatric Evaluations (chief complaint) Generalized anxiety disorderMajor depressive disorder, recurrent, moderateAtten tion-deficit hyperactivity disorder, predominantly inattentive typeDifficult y controlling angerAutism spectrum disorderSenso ry processing difficultyPer kandace history of psychological abuse in childhood 3 Michaela Tello. [address], [place], [address], [place]. tel:[phone] Referring Provider: Omer Jennings, [address] [place], [address]. tel:[phone] PSYTX, 45 MIN W/PT [facility], [address], [place], [place], [address] , [place] [phone] [place] Generalized anxiety disorderPerso nal history of psychological abuse in childhood 3 Pool Brown. [address], [place], [place], [address], [place]. tel:[phone] Referring Provider: Federica Millan, [address], [place], [address]. tel:[phone] PSYTX, 60 MIN W/PT [facility], [address], [place], [place], [address] , [place] tel:[phone] [place] Generalized anxiety disorder 3 Pool Brown. [address], [place], [place], [address], [place]. tel:[phone] Referring Provider: Haydee Viera, [address] [facility], [place], [address]. tel:[phone] PSYCH DIAGNOSTIC EVALUATION [facility], [address], [place], [place], [address] , [place] tel:[phone] [place] Adjustment disorder with mixed anxiety and depressed mood 3 Caleb Mccollum. [address] [place], [place], [address], [place]. [phone] Referring Provider: Osiris León, [address] [place], [address]. tel:[phone] [facility], [address], [place], [place], [address] , [place] tel:[phone] [place] Major depressive disorder, recurrent, moderateGener alized anxiety disorderAutis m 2 Pool Brown. [address], [place], [place], [address], [place]. tel:[phone] PSYTX, 30 MIN W/PT [facility], [address], [place], [place], [address] , [place] tel:[phone] [place] Major depressive disorder, recurrent, moderate 2 Pool Brown. [address], [place], [place], [address], [place]. tel:[phone] Referring Provider: Stephanie Lanza, [address], [place], [address]. tel:[phone] PSYTX, 30 MIN W/PT [facility], [address], [place], [place], [address] , [place] tel:[phone] [place] Major depressive disorder, recurrent, moderateGener alized anxiety disorder 2 Pool Brown. [address], [place], [place], [address], [place]. tel:[phone] Referring Provider: Stephanie Lanza, [address], [place], [address]. tel:[phone] [facility], [address], [place], [place], [address] , [place] tel:[phone] [place] FFS No Information 2 Elenita Serrano. [address], [place], [address], [place]. tel:[phone] Referring Provider: Maggie Huang, [address] [place], [address]. tel:[phone] OFFICE/OUTPA TIENT VISIT, EST [facility], [address], [place], [place], [address] , [place] tel:[phone] [place] medication management (chief complaint) Generalized anxiety disorderAutis mMajor depressive disorder, recurrent, moderateAtten tion-deficit hyperactivity disorder, predominantly inattentive typeMarijuana use 2 Mau Newell. [address] [place], [place], [address], [place]. tel:[phone] Referring Provider: Osiris León, [address] [place], [address]. tel:[phone] PSYTX, 45 MIN W/PT [facility], [address], [place], [place], [address] , [place] tel:[phone] [place] Major depression, recurrent, chronic 2 Pool Brown. [address], [place], [place], [address], [place]. tel:[phone] Referring Provider: Stephanie Lanza, [address], [place], [address]. tel:[phone] PSYTX, 45 MIN W/PT [facility], [address], [place], [place], [address] , [place] tel:[phone] [place] Major depression, recurrent, chronicSiblin g Relational Problem September- 2 Pool Brown. [address], [place], [place], [address], [place]. tel:[phone] Referring Provider: Stephanie Lanza, [address], [place], [address]. tel:[phone] OFFICE/OUTPA TIENT VISIT, EST [facility], [address], [place], [place], [address] , [place] [phone] [place] medication management (chief complaint) Major depression, recurrent, chronicGenera lized anxiety disorderAutis mAttention and concentration deficit 2 Mau Newell. [address] [place] [address], [address], [place]. [phone] Referring Provider: Osiris León, [address] [place] [address], [address]. [phone] OFFICE/OUTPA TIENT VISIT, EST [facility], [address], [place], [place], [address] , [place] [phone] [place] medication management (chief complaint) Major depression, recurrent, chronicSiblin g Relational ProblemGenera lized anxiety disorderAutis mAttention and concentration deficit 2 Mau Newell. [facility] [address] [place], [place], [address], [place]. tel:[phone] Referring Provider: Osiris León, [facility] [place], [address]. tel:[phone] PSYTX, 45 MIN W/PT [facility], [address], [place], [place], [address] , [place] [phone] [place] Major depression, recurrent, chronicSiblin g Relational Problem 2 Pool Brown. [address], [place], [place], [address], [place]. tel:[phone] Referring Provider: Stephanie Lanza, [address], [place], [address]. tel:[phone] OFFICE/OUTPA TIENT VISIT, EST [facility], [address], [place], [place], [address] , [place] [phone] [place] medication management (chief complaint) Major depression, recurrent, chronicGenera lized anxiety disorderAtten tion and concentration deficit 2 Mau Newell. [address] [place] [address], [address], [place]. tel:[phone] Referring Provider: Osiris León, [address] [place] [address], [address]. tel:[phone] PSYTX PT&/FAMILY 45 MINUTES [facility], [address], [place], [place], [address] , [place] tel:[phone] [place] Major depression, recurrent, chronicGenera lized anxiety disorder 2 Pool Brown. [address], [place], [place], [address], [place]. tel:[phone] Referring Provider: Stephanie Lanza, [address], [place], [address]. tel:[phone] PSYTX PT&/FAMILY 45 MINUTES [facility], [address], [place], [place], [address] , [place] [phone] [place] Major depression, recurrent, chronicGenera lized anxiety disorder 2 Pool Brown. [address], [place], [place], [address], [place]. tel:[phone] Referring Provider: Stephanie Lanza, [address], [place], [address]. tel:[phone] OFFICE/OUTPA TIENT VISIT, EST [facility], [address], [place], [place], [address] , [place] tel:[phone] [place] medication management (chief complaint) Major depression, recurrent, chronicGenera lized anxiety disorderImpul sivenessAtten tion and concentration deficit 2 Mau Newell. [address] [place] [address], [address], [place]. tel:[phone] Referring Provider: Osiris León, [address] [place] [address], [address]. tel:[phone] OFFICE/OUTPA TIENT VISIT, EST [facility], [address], [place], [place], [address] , [place] [phone] [place] medication management (chief complaint) Major depression, recurrent, chronicGenera lized anxiety disorderImpul sivenessAtten tion and concentration deficit 2 Mau Newell. [address] [place] [address], [address], [place]. tel:[phone] Referring Provider: Osiris León, [address] [place] [address], [address]. tel:[phone] PSYTX PT&/FAMILY 45 MINUTES [facility], [address], [place], [place], [address] , [place] [phone] [place] Major depression, recurrent, chronicGenera lized anxiety disorderImpul sivenessAtten tion and concentration deficit 2 Pool Brown. [address], [place], [place], [address], [place]. tel:[phone] Referring Provider: Stephanie Lanza, [address], [place], [address]. tel:[phone] [facility], [address], [place], [place], [address] , [place] tel:[phone] [facility] 1 Deacon Claudette. [address] [facility], [place], [place], [address], [place]. tel:[phone] Referring Provider: Claudette Worthy, [address] [facility] [address], [place], [address]. tel:[phone] OFFICE/OUTPA TIENT VISIT, [facility], [address], [place], [id number] , [place] tel:[phone] [place] medication management (chief complaint) Major depression, recurrent, chronicGenera lized anxiety disorderImpul sivenessAtten tion and concentration deficit 1 Mau Newell. [address] [place] [address], [id number], [place]. tel:[phone] Referring Provider: Osiris León, [address] [place] [address], [address]. tel:[phone] PSYTX PT&/FAMILY 45 MINUTES [facility], [address], [place], [place], [id number] , [place] tel:[phone] [place] Major depression, recurrent, chronicGenera lized anxiety disorderImpul sivenessAtten tion and concentration deficitAnxiet y depression 1 Pool Brown. [address], [place], [id number], [place]. tel:[phone] Referring Provider: Stephanie Lanza, [address], [place], [address]. tel:[phone] PSYTX PT&/FAMILY 45 MINUTES [facility], [address], [place], [place], [id number] , [place] [phone] Mck[place] Major depression, recurrent, chronicGenera lized anxiety disorderImpul sivenessAtten tion and concentration deficitAnxiet y depression 1 Pool Brown. [address], [place], [place], [id number], [place]. tel:[phone] Referring Provider: Bruce Sigala, [address] [facility], [place], [address]. tel:[phone] OFFICE/OUTPA TIENT VISIT, [facility], [address], [place], [place], [id number] , [place] [phone] [place] rash (chief complaint) Viral rashBody mass index (BMI) 40.0-44.9, adultEncounte r for immunizationA cute viral pharyngitis 1 LILIAM BATEMAN. [address], [place], [place], [id number], [place]. tel:[phone] Referring Provider: FRANSICO RICKETTS, [address], [place], [address]. tel:[phone] PSYTX PT&/FAMILY 30 MINUTES [facility], [address], [place], [place], [id number] , [place] tel:[phone] [place] Major depression, recurrent, chronicGenera lized anxiety disorderImpul sivenessAtten tion and concentration deficitAnxiet y depression 1 Pool Brown. [address], [place], [place], [id number], [place]. tel:[phone] Referring Provider: Stephanie Lanza, [address], [place], [address]. tel:[phone] PSYTX PT&/FAMILY 30 MINUTES [facility], [address], [place], [place], [id number] , [place] tel: [phone] Mck[place] Major depression, recurrent,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 homicidal ideation and does not present with symptoms of psychosis or jared. Thought content was devoid of auditory, visual or tactile hallucinations and no acute psychosis or jared is observed. Patient does not exhibit feelings of paranoia, suspicion or derealization. Patient is alert and oriented to person, place, date and time (A&Ox3). Attention, concentration and memory are grossly intact. Judgment and insight are both appropriate given patient's age. Patient exhibits capacity to understand the consequences of their own behaviors and ability to make decisions to ensure the safety of self and others. medication management Telemedici ne was performed per regulatory requirements as the practice of health care delivery, diagnosis, consultation and treatment and the transfer of medical data between the originating and distant sites through real time interactive video/audio communications that occur in the physical presence of the member. The patient expressed understanding of the information provided regarding telehealth/telemedicine, all of their questions have been answered to the patient's satisfaction and verbal informed consent for the use of telehealth/telemedicine was provided to this provider. Patient has a right to rescind the use of telecommunication recording at any time. If applicable, consent forms will be obtained as soon as patient can have an in-person visit.Pt with MDD, JOAN, impulsivity, and attention and concentration deficit diagnosed by a neuropsychologist. Pt reports they are taking the prescribed medication consistently. She reports she's still emotional but thinks it's due to life stressors. Reports depression and anxiety sx persist but are better overall with Abilify. After 5 wks of increased dose to 5 mg she reports she's not sure if this has been of benefit or not. Side effects: denies. Akathisia: denies. Denies SI/HI. medication management Pt with MD Smith, JOAN, impulsivity, and attention and concentration deficit diagnosed by a neuropsychologist.Pt states she hasn't had a tantrum in a long time. Sleeping better. Pt has started crying more. Has had a lot of life stress. Pt has straight As and accomodations in school, doesn't want to start rx for concentration defiti. Denies SI/HI. DOS 12/2020: Pt with MDD, JOAN, impulsivity, and attention and concentration deficit diagnosed by a neuropsychologist. Pt is stable with no SI, but due to insurance issues was only able to start Abilify today. Sx are unchanged. Will continue to monitor for side effects..-Continue Abilify 2 mg. Discussed possible side effects including to let me know if she has feelings of restlessness.-Continue other medications as prescribed-CONTINUE Counseling-Keep your appointments with other healthcare providers rash The patient pres ents for rash. This episode began 3 days ago. The symptom(s) are described as resolved. Affected area(s) are scattered on the body including hand(s) and feet. The patient denies aggravating factors such as sun exposure and soaps. Pertinent negatives include sore throat. Additional information: recent exposure at her place of work ([facility] depression/anxiety/d ifficulty concentrating depression/anxiety/d ifficulty concentrating (comments) Patient with hx of MDD, JOAN and diagnosis from neuropsychologist with Autism Spectrum Disorder, mild cognitive impairment, memory loss, attention-concentration deficit. Pt explains due to insurance issues, she picked up Abilify 2 mg today and has taken one dose. She reports dizziness when she took it on an empty stomach, but otherwise denies side effects. Depression.Pt reports sx are unchanged and severe. Continues to have difficulty staying asleep, anhedonia, fatigue, decreased concentration, appetite increase. Denies self-harm. Anxiety: She reports anxiety sx are unchanged and severe. Reports continued excessive anxiety and worry most of the time, most days of the week, difficulty concentrating, feeling easily fatigued, difficulty staying asleep, feeling on edge, irritability and muscle tension. She reports feelings of overwhelm.She reports constant difficulty with impulse control continues to be the sx she is most concerned with. She reports with this anger and irritability, including outbursts at others or breaking things when she is alone. Reports attention-concentration deficit sx are unchanged and she would like to continue without stimulant or other medications for concentration. Patient denies SI/HI/AVH, delusions and paranoia. She denies .Pt recently visited a friend in [place]. She explains she was able to receive assistance at the airport due to cognitive dx from neuropsych eval. 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 A cousin of hers visited her at her house this Friday. Her cousin stayed for a hour and nobody was wearing a mask. Patient got a call the next day from her cousin that he tested positive for COVID19. Patient started having runny nose a week ago with cough but no fever, chills, myalgia, fatigue, headache, diarrhea, chest pain, shortness of breath and lost of taste or smell. She had sore throat 2 days ago. Exposure to Covid19 positive person ADHD, mood, impulse control ADHD, mood, impulse control (comments) Patient presents with records from recent neuropsychologist evaluation. Positive for depression, anxiety, Autism Spectrum Disorder, mild cognitive impairment, memory loss, attention-concentration deficit, among others. Patient reports past diagnosis and treatment for mental health as a teenager. She reports self-harm behaviors as a teenage (cutting), but none since then. She denies SI/HI. She reports a multiple month history of difficulty staying asleep, anhedonia, fatigue, decreased concentration and appetite changes. She denies personal or family hx of bipolar disorder. She denies a hx of any distinct period of abnormally and persistently elevated, expansive or irritable mood. She reports these sx cause impairment in functioning. She reports a multiple month history of excessive anxiety and worry most of the time, most days of the week, difficulty concentrating, feeling easily fatigued, difficulty stayig asleep, feeling on edge, irritability and muscle tension. She reports feelings of overwhelm.She reports the symptom bothering her the most is constant difficulty with impulse control. She states that she thinks her anxiety would decrease if her impulsivity decreased. She reports with this anger and irritability, including outbursts at others or breaking things when she is alone. She states she will be starting an teaching education program soon and is concerned about how these symptoms are affecting her functioning and may affect her performance. She feels that she has been able to cope well with her attention-concentration deficit up to this point and would like to continue without starting any stimulant medication at this time. Patient denies SI/HI/AVH, delusions and paranoia. She denies . Establish Care (comments) Hans stephanie is here to establish care. Previous PCP [facility] in [place]. She carries a PMH of obesity s/p gastric sleeve surgery, SUKHWINDER 2013 (not on CPAP), and recently diagnosed with ADHD and autism on 09/2020. 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 Diet is regular. She was referred to Psychological testing by his PCP to [facility] and diagnosed to have ADHD and autism and psychologist recommend mood stabilizer. She admits to problem keeping asleep but denies feeling tired and feeling sleepy while sitting on the sofa while watching TV or while driving and when stopped in a signal light. No hallucinations, paranoia, SI and HI. Establish Care Functional Status Date Functional Assessmen t No Information Instructions Date Instruction Additional Lilia johnson 1. Begin psychothera py2. Medications: declines Sertraline, stating symptoms are better since getting IUD placed, starting psychotherapy, and starting work.3. Labs: Not indicated at this visit4. Referrals: Case management and counseling service referral5. Patient and/or guardian is advised to Call 911 or go to the closest emergency room for any emergencies.6. Crisis line [phone] information given to patient.7. Follow up with PCP for medical treatment.. -Patient provides informed verbal consent for psychiatric medication. Patient educated on increased risks/side effects of any prescriptions with concurrent use of ETOH and illicit substances including risks of profound sedation, GROUP SALES COORDINATOR depression and . Side effects profiles of prescriptions were reviewed at length including but not limited to Nausea/vomiting/headaches/GI distress/drug-drug interactions/seizure threshold reduction/Serotonin syndrome/SHS/Cardiac abnormalities/black box warnings/neuroleptic malignant syndrome/GROUP SALES COORDINATOR depression and patient is able to verbally express understanding and consent to treatment. Related to Adjustment disorder with mixed anxiety and depressed mood 1. Begin psychothera py2. Medications:- Start Sertraline 25mg PO QDAY, may increase to 50mg/day on day 8 if tolerating wellKisiah reports she had an IUD placed yesterday for mood symptoms 2 weeks before my periods, unknown age for start of symptoms.3. Labs: Not indicated at this visit4. Referrals: Case management and counseling service referral5. Patient and/or guardian is advised to Call 911 or go to the closest emergency room for any emergencies.6. Crisis line [phone] information given to patient.7. Follow up with PCP for medical treatment.. -Patient provides informed verbal consent for psychiatric medication. Patient educated on increased risks/side effects of any prescriptions with concurrent use of ETOH and illicit substances including risks of profound sedation, GROUP SALES COORDINATOR depression and . Side effects profiles of prescriptions were reviewed at length including but not limited to Nausea/vomiting/headaches/GI distress/drug-drug interactions/seizure threshold reduction/Serotonin syndrome/SHS/Cardiac abnormalities/black box warnings/neuroleptic malignant syndrome/GROUP SALES COORDINATOR depression and patient is able to verbally express understanding and consent to treatment. Related to Generalized anxiety disorder The patient provided verbal informed consent for the use of telehealth visit. Pt was informed that all usual policies, procedures, and payments applied, and details of the visit would be documented in their medical record. Patient expressed understanding and discussion was conducted in their preferred language. Related to Adjustment disorder with mixed anxiety and depressed mood -Decrease Abilify fr om 10 mg to 5 mg daily-INCREASE Prozac (Fluoxetine) 40 mg + 20 mg for 60 mg every morning. -Continue other medications as prescribed-CSPMP reviewed as warranted-Additional work up planned: None-Patient encouraged to engage in psychotherapy and support services as well as follow up with PCP or specialist as needed for medical treatment. -Counseling: CONTINUE-Case Management: Referral for Case Management/Banking And Finance Instructor/Peer Support for assistance with: last contact 04/2021. contact request sent -The patient and/or guardian was told to follow up with medical and psychiatric care providers and utilize emergency services on an as needed basis. -The patient and/or guardian was able to express understanding of treatment plan and utilize resources within the community to keep themselves/others safe and notify clinic of any changes to their current medical/psychiatric status. -For a psychiatric emergency (thoughts of or violence), call 911 or go to the nearest emergency department. You can also call the Crisis Line at .. -For urgent psychiatric needs the following sources should be used (including after-hours services): -[facility] at [facility] [address] [place] [address]., [address], [place] [address]; -[facility] ([facility]out [facility]); -Suicide Prevention Lifeline; (574) 307-1891780-8525-Zfuidb-up in 6 weeks. Pt provides informed verbal consent for psychiatric medication. Pt educated on increased risks/side effects of any prescriptions with concurrent use of ETOH and illicit substances including risks of profound sedation, GROUP SALES COORDINATOR depression and . Side effects of prescriptions were reviewed at length including but not limited to Nausea/Vomiting/Headaches/GI Distress/Drug-Drug interactions/Seizure threshold reduction/Serotonin Syndrome/SJS/Cardiac abnormalities/Black box warnings/Neuroleptic Malignant Syndrome/GROUP SALES COORDINATOR Depression and patient is able to verbally express understanding and consent to treatment. Related to Major depressive disorder, recurrent, moderate May- -CONTINUE Abilify 10 mg daily-INCREASE Prozac (Fluoxetine) 40 mg + 20 mg for 60 mg every morning. -Continue other medications as prescribed-CSPMP reviewed as warranted-Additional work up planned: None-Patient encouraged to engage in psychotherapy and support services as well as follow up with PCP or specialist as needed for medical treatment. -Counseling: CONTINUE-Case Management: Referral for Case Management/Banking And Finance Instructor/Peer Support for assistance with: last contact 04/2021-The patient and/or guardian was told to follow up with medical and psychiatric care providers and utilize emergency services on an as needed basis. -The patient and/or guardian was able to express understanding of treatment plan and utilize resources within the community to keep themselves/others safe and notify clinic of any changes to their current medical/psychiatric status. -For a psychiatric emergency (thoughts of or violence), call 911 or go to the nearest emergency department. You can also call the Crisis Line at .. -For urgent psychiatric needs the following sources should be used (including after-hours services): -[facility] located at [address] [place] [address], [address], [place] [address]; -[facility] ([facility]); -Suicide Prevention Lifeline; (805) 588-2984419-8381-Egziya-up in 6 weeks. Pt provides informed verbal consent for psychiatric medication. Pt educated on increased risks/side effects of any prescriptions with concurrent use of ETOH and illicit substances including risks of profound sedation, GROUP SALES COORDINATOR depression and . Side effects of prescriptions were reviewed at length including but not limited to Nausea/Vomiting/Headaches/GI Distress/Drug-Drug interactions/Seizure threshold reduction/Serotonin Syndrome/SJS/Cardiac abnormalities/Black box warnings/Neuroleptic Malignant Syndrome/GROUP SALES COORDINATOR Depression and patient is able to verbally express understanding and consent to treatment. Related to Major depression, recurrent, chronic -CONTINUE Abilify 10 mg daily-CONTINUE Prozac (Fluoxetine) 40 mg every morning. -Continue other medications as prescribed-CSPMP reviewed as warranted-Additional work up planned: None-Patient encouraged to engage in psychotherapy and support services as well as follow up with PCP or specialist as needed for medical treatment. -Counseling: CONTINUE-Case Management: Referral for Case Management/Banking And Finance Instructor/Peer Support for assistance with: last contact 04/2021-The patient and/or guardian was told to follow up with medical and psychiatric care providers and utilize emergency services on an as needed basis. -The patient and/or guardian was able to express understanding of treatment plan and utilize resources within the community to keep themselves/others safe and notify clinic of any changes to their current medical/psychiatric status. -For a psychiatric emergency (thoughts of or violence), call 911 or go to the nearest emergency department. You can also call the Crisis Line at .. -For urgent psychiatric needs the following sources should be used (including after-hours services): -[facility] at [address] [place] [address], [address], [place] [address]; -[facility] ([facility]); -Suicide Prevention Lifeline; (851) 225-2406532-3432-Izdncn-up in 3 weeks. Pt provides informed verbal consent for psychiatric medication. Pt educated on increased risks/side effects of any prescriptions with concurrent use of ETOH and illicit substances including risks of profound sedation, GROUP SALES COORDINATOR depression and . Side effects of prescriptions were reviewed at length including but not limited to Nausea/Vomiting/Headaches/GI Distress/Drug-Drug interactions/Seizure threshold reduction/Serotonin Syndrome/SJS/Cardiac abnormalities/Black box warnings/Neuroleptic Malignant Syndrome/GROUP SALES COORDINATOR Depression and patient is able to verbally express understanding and consent to treatment. Related to Major depression, recurrent, chronic -CONTINUE Abilify 10 mg daily-START Prozac (Fluoxetine) 20 mg every morning for 1 week, then 40 mg every morning after that. -Continue other medications as prescribed-CSPMP reviewed as warranted-Additional work up planned: None-Patient encouraged to engage in psychotherapy and support services as well as follow up with PCP or specialist as needed for medical treatment. -Counseling: CONTINUE-Case Management: Referral for Case Management/Banking And Finance Instructor/Peer Support for assistance with: last contact 04/2021-The patient and/or guardian was told to follow up with medical and psychiatric care providers and utilize emergency services on an as needed basis. -The patient and/or guardian was able to express understanding of treatment plan and utilize resources within the community to keep themselves/others safe and notify clinic of any changes to their current medical/psychiatric status. -For a psychiatric emergency (thoughts of or violence), call 911 or go to the nearest emergency department. You can also call the Crisis Line at .. -For urgent psychiatric needs the following sources should be used (including after-hours services): -[facility] at [address] [place] [address], [address], [place] [address]; -[facility] ([facility]); -Suicide Prevention Lifeline; (638) 732-5582704-3460-Fepkij-up in 2 and 6 weeks. Pt provides informed verbal consent for psychiatric medication. Pt educated on increased risks/side effects of any prescriptions with concurrent use of ETOH and illicit substances including risks of profound sedation, GROUP SALES COORDINATOR depression and . Side effects of prescriptions were reviewed at length including but not limited to Nausea/Vomiting/Headaches/GI Distress/Drug-Drug interactions/Seizure threshold reduction/Serotonin Syndrome/SJS/Cardiac abnormalities/Black box warnings/Neuroleptic Malignant Syndrome/GROUP SALES COORDINATOR Depression and patient is able to verbally express understanding and consent to treatment. Related to Major depression, recurrent, chronic -INCREASE Abilify to 10 mg daily. -Continue other medications as prescribed-CSPMP reviewed as warranted-Additional work up planned: None-Patient encouraged to engage in psychotherapy and support services as well as follow up with PCP or specialist as needed for medical treatment. -Counseling: CONTINUE-Case Management: Referral for Case Management/Banking And Finance Instructor/Peer Support for assistance with: last contact 04/2021-The patient and/or guardian was told to follow up with medical and psychiatric care providers and utilize emergency services on an as needed basis. -The patient and/or guardian was able to express understanding of treatment plan and utilize resources within the community to keep themselves/others safe and notify clinic of any changes to their current medical/psychiatric status. -For a psychiatric emergency (thoughts of or violence), call 911 or go to the nearest emergency department. You can also call the Crisis Line at .. -For urgent psychiatric needs the following sources should be used (including after-hours services): -[facility] located at [address], [place] [address]; -[facility] ([facility]); -Suicide Prevention Lifeline; (775) [phone]-Xcxqii-up in 6 weeks. Pt provides informed verbal consent for psychiatric medication. Pt educated on increased risks/side effects of any prescriptions with concurrent use of ETOH and illicit substances including risks of profound sedation, GROUP SALES COORDINATOR depression and . Side effects of prescriptions were reviewed at length including but not limited to Nausea/Vomiting/Headaches/GI Distress/Drug-Drug interactions/Seizure threshold reduction/Serotonin Syndrome/SJS/Cardiac abnormalities/Black box warnings/Neuroleptic Malignant Syndrome/GROUP SALES COORDINATOR Depression and patient is able to verbally express understanding and consent to treatment. Related to Major depression, recurrent, chronic -INCREASE Abilify to 5 mg daily-Continue other medications as prescribed-CONTINUE Counseling-Case Management: last contact 04/2021-Keep your appointments with other healthcare providers-For a psychiatric emergency (thoughts of or violence), call 911 or go to the nearest emergency department. You can also call the Crisis Line at . -For urgent psychiatric needs the following sources should be used (including after-hours services): -[facility] located at [address], [place] [address]; -[facility] ([facility]); -Suicide Prevention [facility]; (643) 290-7039619-8046-Aizfaw-up in 4 weeks. Pt provides informed verbal consent for psychiatric medication. Pt educated on increased risks/side effects of any prescriptions with concurrent use of ETOH and illicit substances including risks of profound sedation, GROUP SALES COORDINATOR depression and . Side effects of prescriptions were reviewed at length including but not limited to Nausea/Vomiting/Headaches/GI Distress/Drug-Drug interactions/Seizure threshold reduction/Serotonin Syndrome/SJS/Cardiac abnormalities/Black box warnings/Neuroleptic Malignant Syndrome/GROUP SALES COORDINATOR Depression and patient is able to verbally express understanding and consent to treatment. Related to Major depression, recurrent, chronic The patient provided verbal informed consent for the use of the telehealth visit. The patient was informed that all usual policies, procedures and payments applied, and details of the visit would be documented in their medical record. The patient expressed understanding and discussion was conducted in their preferred language. Pt to continue with med mgmt and biweekly psychotherapy sessions. The patient verbalized an understanding of the plan. Related to Generalized anxiety disorder -INCREASE Abilify to 5 mg daily-Continue other medications as prescribed-CONTINUE Counseling-Case Management: contact request sent-Keep your appointments with other healthcare providers-For a psychiatric emergency (thoughts of or violence), call 911 or go to the nearest emergency department. You can also call the Crisis Line at . -For urgent psychiatric needs the following sources should be used (including after-hours services): -[facility] located at [address] [place] [address], [address], [place] [address]; -[facility] ([facility]); -Suicide Prevention [facility]; (305) 468-2709600-8640-Isoeic-up in 6 weeks Related to Major depression, recurrent, chronic The patient provided verbal informed consent for the use of the telehealth visit. The patient was informed that all usual policies, procedures and payments applied, and details of the visit would be documented in their medical record. The patient expressed understanding and discussion was conducted in their preferred language. Pt to continue with med mgmt and biweekly psychotherapy sessions. The patient verbalized an understanding of the plan. Related to Generalized anxiety disorder The patient provided verbal informed consent for the use of the telehealth visit. The patient was informed that all usual policies, procedures and payments applied, and details of the visit would be documented in their medical record. The patient expressed understanding and discussion was conducted in their preferred language. Pt to continue with med mgmt and biweekly psychotherapy sessions. The patient verbalized an understanding of the plan. Related to Generalized anxiety disorder FLU vaccine given today. Related to Encounter for immunization No rash present on exam today. R elated to Viral rash supportive care; sof t foods, cool drinks, warm soups, Tylenol/ibuprofen for pain/fever. Discussed course of illness,follow up if new or worsening of symptoms. Rapid strep negative. will send for culture. Related to Acute viral pharyngitis Giving encouragement to exercise Related to Body mass index [BMI] 40.0-44.9, adult Dietary management e ducation, guidance, and counseling Related to Body mass index [BMI] 40.0-44.9, adult The patient provided verbal informed consent for the use of the telehealth visit. The patient was informed that all usual policies, procedures and payments applied, and details of the visit would be documented in their medical record. The patient expressed understanding and discussion was conducted in their preferred language. Pt to continue with med mgmt and biweekly psychotherapy sessions. The patient verbalized an understanding of the plan. Related to Anxiety depression The patient provided verbal informed consent for the use of the telehealth visit. The patient was informed that all usual policies, procedures and payments applied, and details of the visit would be documented in their medical record. The patient expressed understanding and discussion was conducted in their preferred language. Pt to continue with med mgmt and weekly psychotherapy sessions. The patient verbalized an understanding of the plan. Related to Anxiety depression The patient provided verbal informed consent for the use of telehealth visit. Pt was informed that all usual policies, procedures, and payments applied, and details of the visit would be documented in their medical record. Patient expressed understanding and discussion was conducted in their preferred language. Pt to continue with med mgmt and weekly psychotherapy sessions; f/u appt scheduled. The patient verbalized an understanding of the plan. Related to Generalized anxiety disorder The patient provided verbal informed consent for the use of telehealth visit. Pt was informed that all usual policies, procedures, and payments applied, and details of the visit would be documented in their medical record. Patient expressed understanding and discussion was conducted in their preferred language. Pt to continue with med mgmt and weekly psychotherapy sessions; follow up appt scheduled. The patient verbalized an understanding of the plan. Related to Anxiety depression -Continue Abilify 2 mg. Discussed possible side effects including to let me know if she has feelings of restlessness.-Continue other medications as prescribed-CONTINUE Counseling-Keep your appointments with other healthcare providers-For a psychiatric emergency (thoughts of or violence), call 911 or go to the nearest emergency department. You can also call the Crisis Line at . -For urgent psychiatric needs the following sources should be used (including after-hours services): -[facility] located at [address], [place] [address]; -[facility] ([facility]out [facility]); -Suicide Prevention [facility]; (529) 959-8267937-0371-Krgmml-up in 3 weeks Related to Major depression, recurrent, chronic The patient provided verbal informed consent for the use of telehealth visit. Pt was informed that all usual policies, procedures, and payments applied, and details of the visit would be documented in their medical record. Patient expressed understanding and discussion was conducted in their preferred language. Pt to continue with med mgmt and will engage in weekly psychotherapy sessions; follow up appt scheduled. The patient verbalized an understanding of the plan. Related to Major depression, recurrent, chronic Will have you come t [facility] for testing. Teachback technique utilized for patient education. Related to Cough As per above Related to Pain in throat Will have you come t [facility] for testing. Teachback technique utilized for patient education. Related to Exposure to COVID-19 virus 1) Start Abilify 2 m g each morning. Discussed possible side effects, including to call the clinic immediately if she begins experiencing abnormal body movements, an internal feeling of restlessness, or the feeling that she needs to move or fidget constantly. 2) Continue with counseling3) Continue other medications as prescribed4) Keep your appointments with other healthcare providers5) Obtain records from neuropsychologist6) For psychiatric emergency (thoughts of or violence), call 911 or go to the nearest emergency department. You can also call the crisis line at [phone]. 7) Follow-up in 2 weeks or sooner if neededPatient voiced understanding and agreement with above plan. Related to Major depression, recurrent, chronic poonam lopez, reports current symptoms of anxiety/depression, requested counseling and psych/med management services, appointments scheduled The patient provided verbal informed consent for the use of telehealth visit. Pt was informed that all usual policies, procedures, and payments applied, and details of the visit would be documented in their medical record. Patient expressed understanding and discussion was conducted in their preferred language. Related to Anxiety depression Self-management goal s reviewed and discussed, see form for assessment and progress. Heathy Eating habits and regular walking exercise. Related to Body mass index [BMI]40.0-44.9, adult You have been referr ed to the followin. Dr Caleb Vicente ([facility] in [place]). [facility]. Related to Attention deficit hyperactivity disorder (ADHD), unspecified ADHD type You have been referr ed to the followin. Dr Caleb Vicente ([facility] in [place]). [facility]. [facility]. Related to Autism Counselled on risk a nd complications of obesity. Need to loose weight with diet and exercise. Blood test today. Teachback technique utilized for patient education. Related to Class 3 severe obesity due to excess calories without serious comorbidity with body mass index (BMI) of 40.0 to 44.9 in adult Assessments Type Assessment Date assessment Major depression, recurrent, chr onic Patient Care Teams Name Effective Dates (start - stop) Status Members No Information
--- NOTE | 2024-08-31 11:40 | PC.NURSE ---
Pt. reports a L. temporal headache, pressure behind her L. eye, feeling like her L. eyelid won't completely close when lying spine and that the left side of her mouth won't allow her to completely smile. No facial droop. Speech is clear. Airway intact.
[2024-08-31 12:45] VITALS: BP 123/71; PULSE 70; RESP 14; O2SAT 100
--- NOTE | 2024-08-31 13:11 | ED.GENADULT ---
HPI - General Adult General Chief complaint: Unspecified Stated complaint: facial twitching Time Seen by Provider: 08/31/24 12:40 Source: patient and family Mode of arrival: ambulatory Limitations: no limitations History of Present Illness HPI narrative: Patient presents with report of facial twitching for the past 3-4 days, appreciated to the left of her nose. She has decreased ability to life her upper lip which feels numb. She is unable to close her eye completely Concerned she is having a stroke because her grandmother had one that left her debilitated for 10-15 years. No alteration in taste. Related Data Home Medications ?Medication ?Instructions ?Recorded ?Confirmed ?Last Taken ?Type hydroxyzine HCl 25 mg tablet mg 06/02/24 Unknown History sertraline 100 mg tablet mg 06/02/24 Unknown History Allergies Allergy/AdvReac Type Severity Reaction Status Date / Time No Known Allergies Allergy Verified 08/31/24 10:23 [facility] Past Medical History Medical History PCOS (polycystic ovarian syndrome) Migraines Anxiety Autism Surgical History Surgical History No pertinent past surgical history Family History Family History Mother Family history unknown Grandparent Cerebrovascular accident Social History Social History Smoking status: Never smoker Living arrangements: with family Gender identity (if verbalized by the patient): Female Exam Narrative: GENERAL: Well-appearing, well-nourished, and in no acute distress. HEAD: Normocephalic, atraumatic. EYES: Non injected, non icteric ENT: Nares clear, no rhinorrhea or epistaxis. Tympanic membranes normal bilaterally without effusion/vessicles. NECK: Supple. CHEST: Speaking in full sentences. No respiratory distress. HEART: Regular rate and rhythm. . ABDOMEN: Soft, nondistended. EXTREMITIES: Normal range of motion. No lower extremity edema. SKIN: Warm, dry, no rash. NEURO: Alert and oriented x3. Left sided facial nerve palsy. While bilateral forehead wrinkes, left does so less prominently and inability to lift corner of left eye. Patient can smile (not completely flaccid) but unequal corner of left lip. Patient notes reduced sensation to touch across left face. PSYCH: Normal mood and affect. Course Vital Signs Vital signs: Vital Signs Temperature 97.8 F 08/31/24 10:28 Pulse Rate 82 08/31/24 10:28 Respiratory Rate 16 08/31/24 10:28 Blood Pressure 134/73 08/31/24 10:28 Pulse Oximetry 100 08/31/24 10:28 Temperature 97.8 F 08/31/24 10:28 Pulse Rate 75 08/31/24 13:56 Respiratory Rate 16 08/31/24 13:56 Blood Pressure 135/91 H 08/31/24 13:56 Pulse Oximetry 100 08/31/24 13:56 Medical Decision Making MDM Narrative Medical decision making narrative: Patient presents with left sided facial twitching for the past 3-4 days. Associated with decreased ability to lift upper lid and close eye completely. In the emergency department they are afebrile with vital signs within normal limits. ALthough the forehead is partially spared, there is slight asymmetry and the involvement of the outer lid fissure does support Dykes's Palsy, as well as patient's age. Spends very little time outdoors, no suspicion for Lyme disease. Advised patient on the need for eye protection. Prescribed meds for this as well as steroid course (first dose given in the ED), antiviral (first dose given in ED). Discharged recommending ophtho follow up. Differential Diagnosis Differential Diagnosis: Dykes's palsy, ramsy kahn, trigeminal neuralgia, CVA/TIA Vital Signs Vital Signs: Vital Signs Temperature 97.8 F 08/31/24 10:28 Pulse Rate 82 08/31/24 10:28 Respiratory Rate 16 08/31/24 10:28 Blood Pressure 134/73 08/31/24 10:28 Pulse Oximetry 100 08/31/24 10:28 Temperature 97.8 F 08/31/24 10:28 Pulse Rate 75 08/31/24 13:56 Respiratory Rate 16 08/31/24 13:56 Blood Pressure 135/91 H 08/31/24 13:56 Pulse Oximetry 100 08/31/24 13:56 Discharge Plan Discharge Clinical Impression: Dykes's palsy Patient Disposition: Home Condition: Stable Instructions: Antibiotic Form, Dykes Palsy (ED) Additional Instructions: For eye protection, use artificial tears every hour while awake. Apply ophthalmic ointment at night and tape your eye shut using skin tape. Follow up with ophthalmology for monitoring of the affected cornea. Take the course of steroids and antiviral. Follow-up with ophthalmology for evaluation of your cornea. Return to the emergency department with any new, worsening, unmanaged symptoms. Patient Language: Kinyarwanda Prescriptions: New artificial tears(hypromellose) 0.3 % drops 1 drp LEFT EYE BID PRN (Reason: dry eyes) Qty: 15 0RF bacitracin 500 unit/gram ointment 1 applic LEFT EYE QHS 7 Days Qty: 3.5 0RF prednisone 20 mg tablet 60 mg PO DAILY 6 Days Qty: 18 0RF Rx Instructions: Start 09/01/2024. Received 1st dose in the ED 08/31. Take before 9:00 a.m. if possible valacyclovir 1 gram tablet 1,000 mg PO TID 7 Days Qty: 20 0RF Rx Instructions: received first dose in ED 08/31 afternoon No Action sertraline 100 mg tablet hydroxyzine HCl 25 mg tablet sulfamethoxazole-trimethoprim [Bactrim DS] 800-160 mg tablet 1 tablet PO Q12H Qty: 20 0RF cephalexin 500 mg capsule 500 mg PO Q6H Qty: 40 0RF Follow-up/Referrals: Elizabeth Bryan [Outside] Elizabeth Cagle [Outside] Korina,Kimberly Forrest MD [Primary Care Provider] - Stand Alone Forms: Work/School Release IP Time of Disposition: 13:40
[2024-08-31] MEDS: predniSONE 20 MG TABLET 60 MG PO (13:43)
[2024-08-31 13:56] VITALS: BP 135/91; PULSE 75; RESP 16; O2SAT 100
--- OUTSIDE RECORDS SUMMARY | 2024-08-31 13:57 | XMS_ITS | Clinical Summary ---
Author Organization [facility] Address [address] [place] [address] Care Team Providers Care Child Care Specialist Name Role Phone Kimberly Hui MD Primary [...] of them at least 8 months in [phone]. Assessment & Plan (06/24/2024 9:25 AM STEAM CLEANING MACHINE OPERATOR): Chronic. Not controlled. Failed multiple medications including SSRIs sertraline, fluoxetine, Abilify which each been taken for more than 8 months. Will trial Vraylar. She does have new insurance starting in July in case her current insurance does not cover well. Mild cognitive impairment 06/24/2024 Morbid obesity 06/24/2024 PCOS (polycystic ovarian syndrome) 06/24/2024 Overview (06/24/2024): Believes she had an ultrasound. Autism ([facility]) 10/22/2020 Overview (06/24/2024): I was diagnosed in 2020 Hidradenitis suppurativa 06/24/2016 Overview (06/24/2024): New cysts forming in the groin and beneath the breasts periodically. Has not been treated in the past. Assessment & Plan (06/24/2024 9:26 AM STEAM CLEANING MACHINE OPERATOR): Discussed doxycycline is mainstay treatment however she declines that currently as she would prefer to be off antibiotics she is open to hormonal treatment. Trial Neeta. H/O gastric sleeve 12/22/2014 Overview (06/24/2024): 2014. Encounters Date Type Department Care Team Description 07/06/2024 7:30 AM STEAM CLEANING MACHINE OPERATOR Laboratory Only [facility] [address] [place] [address] Kimberly Hui MD 07/06/2024 MyChart Message Enc [facility] [place] [address] [place], [place] [id number] Kimberly Hui MD Triglycerides 07/06/2024 Travel 06/29/2024 MyChart Message Enc [address] [place] [address] Kimberly Hui MD HPV Vaccine 06/24/2024 8:50 AM STEAM CLEANING MACHINE OPERATOR Office Visit [address] [place] [address] Kimberly Hui MD New Patient (Here to [...] on file Legal Sex Female 2:46 PM STEAM CLEANING MACHINE OPERATOR Gender Identity Female 05/13/2024 1:38 PM STEAM CLEANING MACHINE OPERATOR Sexual Orientation Bisexual 05/13/2024 1: 38 PM STEAM CLEANING MACHINE OPERATOR Occupation Industry Job Start Date Job End Date [employer] Not on file Not on file No t on file Last Filed Vital Signs Vital Sign Reading Time Taken Comments Blood Pressure 131/78 06/24/2024 8:42 AM STEAM CLEANING MACHINE OPERATOR Pulse 89 06/24/2024 8:42 AM STEAM CLEANING MACHINE OPERATOR Temperature 36.7 C (98 F) 06/24/2024 8:42 AM STEAM CLEANING MACHINE OPERATOR Respiratory Rate 18 05/10/2024 2:50 PM STEAM CLEANING MACHINE OPERATOR Oxygen Saturation 100% 06/24/2024 8: 42 AM STEAM CLEANING MACHINE OPERATOR Inhaled Oxygen Concentration - - Weight 133.7 kg (294 lb 12.8 oz) 06/24/2024 8:42 AM STEAM CLEANING MACHINE OPERATOR Height 162.6 cm (5' 4 ) 06/24/2024 8:42 AM STEAM CLEANING MACHINE OPERATOR Body Mass Index 50.6 06/24/2024 8:42 AM STEAM CLEANING MACHINE OPERATOR Plan of Treatment Upcoming Encounters Date Type Department Care Team (Late st Contact Info) Description 09/24/2024 11:30 AM CDT Office Visit [facility] [place] [address] [place], [place] [phone] Kimberly Hui MD [address] [place], [place] [id number] Health Maintenance Due Date Last Done Comments [...] Td or Tdap) 05/26/2031 05/26/2021 PHQ-2 (Physician Murray) Completed 06/24/2024 Meningococcal B Vaccine Aged Out [...] Comments HEMOGLOBIN, GLYCOSYLATED Routine 07/06/2024 7:51 AM STEAM CLEANING MACHINE OPERATOR Routine general medical examination at a health care facility LIPID PANEL Routine 07/06/2024 7:51 AM STEAM CLEANING MACHINE OPERATOR Routine general medical examination at a health care facility COLLECTION VENOUS BLOOD VENIPUNCTURE Routine 07/06/2024 7:50 AM STEAM CLEANING MACHINE OPERATOR Routine general medical examination at a health care facility COMPREHENSIVE METABOLIC PANEL Routine 07/06/2024 7:50 AM STEAM CLEANING MACHINE OPERATOR Routine general medical examination at a [facility] care facility VITAMIN B-12 Routine 07/06/2024 7:50 AM STEAM CLEANING MACHINE OPERATOR Routine general medical examination at a [facility] care facility TSH W/REFLEX Routine 07/06/2024 7:50 AM STEAM CLEANING MACHINE OPERATOR Routine general medical examination at a [facility] care facility CBC W/DIFF AUTOMATED Routine 07/06/2024 7:50 AM STEAM CLEANING MACHINE OPERATOR H/O gastric sleeve from Last 3 Months Results * (ABNORMAL) HEMOGLOBIN, GLYCOSYLATED (07/06/2024 7:51 AM STEAM CLEANING MACHINE OPERATOR) [facility] HGB A1C 5.7 4.5 - 6.2 % 07/06/2024 4:55 PM STEAM CLEANING MACHINE OPERATOR [facility] ESTIMATED AVG GLUCOSE 117(H) 74 - 106 MG/DL 07/06/2024 4:55 PM STEAM CLEANING MACHINE OPERATOR [facility] 07/06/2024 7:51 AM STEAM CLEANING MACHINE OPERATOR us Kimberly Hui MD LABORATORY Final Re sult [facility] [address] [place] [address], [place] [phone] * LIPID PANEL (07/06/2024 7:51 AM STEAM CLEANING MACHINE OPERATOR) [facility] CHOLESTEROL 166 <200 MG/DL 07/06/2024 2:58 PM STEAM CLEANING MACHINE OPERATOR [facility] TRIGLYCERIDES 58 <150 MG/DL 07/06/2024 2:58 PM STEAM CLEANING MACHINE OPERATOR [facility] HDL 58 >40 MG/DL 07/06/2024 2:58 PM STEAM CLEANING MACHINE OPERATOR [facility] LDL-C 96 <100 MG/DL 07/06/2024 2:58 PM STEAM CLEANING MACHINE OPERATOR [facility] VLDL CALCULATION 12 5 - 28 MG/DL 07/06/2024 2:58 PM STEAM CLEANING MACHINE OPERATOR [facility] CHOL/HDL RATIO 2.9 0.0 - 4.0 07/06/2024 2:58 PM STEAM CLEANING MACHINE OPERATOR [facility] LDL/HDL 1.7 0.41 - 2.13 07/06/2024 2:58 PM STEAM CLEANING MACHINE OPERATOR [facility] NON HDL CHOLESTEROL 108 <140 MG/DL 07/06/2024 2:58 PM STEAM CLEANING MACHINE OPERATOR [facility] 07/06/2024 7:51 AM STEAM CLEANING MACHINE OPERATOR Kimberly Hui MD LABORATORY Final Re sult [facility] [address] [place] [address], [place] [phone] * TSH W/REFLEX (07/06/2024 7:50 AM STEAM CLEANING MACHINE OPERATOR) TSH 0.999 0.358 - 3.740 uIU/ML 07/06/2024 3:39 PM STEAM CLEANING MACHINE OPERATOR [facility] 07/06/2024 7:50 AM STEAM CLEANING MACHINE OPERATOR Kimberly Hui MD LABORATORY Final Re sult [facility] [address] [place] [address], [place] [phone] * VITAMIN B-12 (07/06/2024 7:50 AM STEAM CLEANING MACHINE OPERATOR) VITAMIN B12 S/P/B 570 193 - 986 PG/ML 07/06/2024 3:39 PM STEAM CLEANING MACHINE OPERATOR [facility] 07/06/2024 7:50 AM STEAM CLEANING MACHINE OPERATOR us Kimberly Hui MD LABORATORY Final Re sult [facility] [place] [address] [place] [address], * (ABNORMAL) COMPREHENSIVE METABOLIC PANEL (07/06/2024 7:50 AM STEAM CLEANING MACHINE OPERATOR) SODIUM S/P/B 141 136 - 145 MMOL/L 07/06/2024 3:39 PM STEAM CLEANING MACHINE OPERATOR [facility] POTASSIUM S/P/B 4.3 3.5 - 5.1 MMOL/L 07/06/2024 3:39 PM STEAM CLEANING MACHINE OPERATOR [facility] CHLORIDE S/P/B 105 98 - 107 MMOL/L 07/06/2024 3:39 PM STEAM CLEANING MACHINE OPERATOR [facility] CO2 28.2 21 - 32 MMOL/L 07/06/2024 3:39 PM STEAM CLEANING MACHINE OPERATOR [facility] GLUCOSE 102(H) 70 - 99 MG/DL 07/06/2024 3:39 PM STEAM CLEANING MACHINE OPERATOR [facility] BUN 7 7 - 18 MG/DL 07/06/2024 3:39 PM STEAM CLEANING MACHINE OPERATOR [facility] CREATININE S/P/B 0.80 0.55 - 1.02 MG/DL 07/06/2024 3:39 PM STEAM CLEANING MACHINE OPERATOR [facility] CALCIUM S/P/B 8.8 8.4 - 10.5 MG/DL 07/06/2024 3:39 PM STEAM CLEANING MACHINE OPERATOR [facility] BILIRUBIN TOTAL S/P/B 0.2 0.2 - 1.0 MG/DL 07/06/2024 3:39 PM STEAM CLEANING MACHINE OPERATOR [facility] [place] ALKALINE PHOSPHATASE S/P/B 49 37 - 98 U/L 07/06/2024 3:39 PM [facility] [place] AST 26 15 - 37 U/L 07/06/2024 3:39 PM [facility] [place] ALT 47 14 - 59 U/L 07/06/2024 3:[address] [facility] TOTAL PROTEIN S/P/B 6.8 6.4 - 8.2 G/DL 07/06/2024 3:39 PM [facility] [place] ALBUMIN S/P/B 3.3(L) 3.4 - 5.0 G/DL 07/06/2024 3:[address] [facility] ANION GAP 7.8 5 - 15 MMOL/L 07/06/2024 3:39 PM [facility] Comment:REFERENCE RANGE NOT ESTABLISHED OSMOLALITY (CALC) 290 MOSM/KG 025 3:39 PM [facility] Comment:REFERENCE RANGE NOT ESTABLISHED GFR ESTIMATE >90 >90 ML/MIN/1. 73 M2 07/06/2024 3:39 PM [facility] GFR NOTES GFR REFERENCE S: 07/06/2024 3:39 PM [facility] [place] Comment: THE ESTIMATED GFR IS CALCULATED USING [...] FAILURE: <15 ml/min/1.73 m2 07/06/2024 7:50 AM STEAM CLEANING MACHINE OPERATOR Kimberly Hui MD LABORATORY Final Re sult [facility] [place] [address] [place] [address], * (ABNORMAL) CBC W/DIFF AUTOMATED (07/06/2024 7:50 AM STEAM CLEANING MACHINE OPERATOR) WBC 3.22(L) 4.00 - 10.80 x10'3/uL 07/06/2024 4:15 PM STEAM CLEANING MACHINE OPERATOR [facility] RBC 4.07(L) 4.10 - 5.40 x10'6/uL 07/06/2024 4:15 PM STEAM CLEANING MACHINE OPERATOR [facility] HGB 11.8(L) 12.0 - 16.0 G/DL 07/06/2024 4:15 PM STEAM CLEANING MACHINE OPERATOR [facility] HCT 36.4 36.0 - 47.0 % 07/06/2024 4:15 PM STEAM CLEANING MACHINE OPERATOR [facility] MCV 89.4 78.0 - 100.0 FL 07/06/2024 4:15 PM STEAM CLEANING MACHINE OPERATOR [facility] MCH 29.0 27.0 - 31.0 PG 07/06/2024 4:15 PM STEAM CLEANING MACHINE OPERATOR [facility] MCHC 32.4(L) 33.0 - 36.0 G/DL 07/06/2024 4:15 PM STEAM CLEANING MACHINE OPERATOR [facility] RDW 12.9 11.5 - 14.5 % 07/06/2024 4:15 PM STEAM CLEANING MACHINE OPERATOR [facility] PLT 318 150 - 350 x10'3/uL 07/06/2024 4:[address] [facility] MPV 10.4 7.4 - 10.4 FL 07/06/2024 4:15 PM STEAM CLEANING MACHINE OPERATOR [facility] IMMATURE GRANS % 0.0 % 07/06/19 25 4:23 PM STEAM CLEANING MACHINE OPERATOR [facility] NEUTROPHILS % 42.6 % 07/06/2024 4:[address] [facility] EOSINOPHILS % 1.9 % 07/06/2024 4:[address] [facility] BASOPHILS % 1.2 % 07/06/2024 4:[address] [facility] LYMPHOCYTES % 44.7 % 07/06/2024 4:[address] [facility] MONOCYTES % 9.6 % 07/06/2024 4:[address] [facility] ABS. NEUTROPHILS 1.37(L) 1.60 - 8.30 x10'3/uL 07/06/2024 4:[address] [facility] ABS. IMMATURE GRANULOCYTES 0.00 0.00 - 0.03 x10'3/uL 07/06/2024 4:[address] [facility] ABS. EOSINOPHILS 0.06 0.00 - 0.40 x10'3/uL 07/06/2024 4:[address] [facility] ABS. BASOPHILS 0.04 0.00 - 0.20 x10'3/uL 07/06/2024 4:[address] [facility] ABS. LYMPHOCYTES 1.44 0.80 - 4.70 x10'3/uL 07/06/2024 4:[address] [facility] ABS. MONOCYTES 0.31 0.00 - 1.50 x10'3/uL 07/06/2024 4:[address] [facility] RBC MORPHOLOGY NORMAL 07/06/2024 4:[address] [facility] PLT MORPH. NORMAL 07/06/2024 4:[address] [facility] PLT EST. NORMAL x10'3/uL 07/06/2024 4:[address] [facility] Comment:Few large Platelets present. DIFFERENTIAL TYPE AUTO-DIFF VERIFIED BY BLOOD SMEAR SCAN. 07/06/2024 4:[address] [facility] 07/06/2024 7:50 AM STEAM CLEANING MACHINE OPERATOR us Kimberly Hui MD LABORATORY Final Re sult [facility] [address] [place] [address], [place] [phone] from Last 3 Months Insurance T [facility] Care Teams Child Care Specialist Relationship Specialty Start Date End Date Kimberly Hui MD [address] [address] PCP - General FAMILY PRACTICE 06/24/24
--- OUTSIDE RECORDS SUMMARY | 2024-08-31 13:58 | XMS_ITS | Continuity of Care Document ---
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 [address], [place], [address], [place]. tel:[phone] [facility], [address] [place] [address], [id number] , [place] tel:[phone] [facility] Major depression, recurrent, chronic Oct- 4 Terry Tobar. [address], [place], [address], [place]. tel:[phone] Referring Provider: Yolanda Cerna, [address] [place], [address]. tel:[phone] OFFICE/OUTPA TIENT VISIT, EST [facility], [address], [place], [address] , [place] tel: [phone] [place] med management (chief complaint) Major depressive disorder, recurrent, moderateGener alized anxiety disorderAutis m spectrum disorderAtten tion-deficit hyperactivity disorder, predominantly inattentive typePersonal history of psychological abuse in childhood 4 Eryn Guerrero. [address] [facility], [place], [place], [address], [place]. tel:[phone] PSYTX, 30 MIN W/PT [facility], [address], [place], [place], [address] , [place] tel: [phone] [place] Major depressive disorder, recurrent, moderateSibli ng Relational ProblemGenera lized anxiety disorder 4 Pool Brown. [address], [place], [place], [address], [place]. tel:[phone] PSYTX, 45 MIN W/PT [facility], [address], [place], [place], [address] , [place] tel: [phone] [place] Generalized anxiety disorderPerso nal history of psychological abuse in childhood 4 Pool Brown. [address], [place], [place], [address], [place]. tel:[phone] PSYTX, 30 MIN W/PT [facility], [address], [place], [place], [address] , [place] tel: [phone] [place] Generalized anxiety disorder 4 Pool Brown. [address], [place], [place], [address], [place]. tel:[phone] PSYTX, 45 MIN W/PT [facility], [address], [place], [place], [address] , [place] tel: [phone] [place] Generalized anxiety disorderPerso nal history of psychological abuse in childhood 4 Pool Brown. [address], [place], [place], [address], [place]. tel:[phone] OFFICE/OUTPA TIENT VISIT, EST [facility], [address], [place], [place], [address] , [place] tel:[phone] [place] med management (chief complaint) Major depressive disorder, recurrent, moderateGener alized anxiety disorderAutis m spectrum disorderAtten tion-deficit hyperactivity disorder, predominantly inattentive typePersonal history of psychological abuse in childhood 4 Eryn Guerrero. [address], [place], [address], [place]. tel:[phone] PSYTX, 45 MIN W/PT [facility], [address], [place], [place], [address] , [place] tel:[phone] [place] Major depressive disorder, recurrent, moderateSibli ng Relational ProblemAutism spectrum disorderAtten tion-deficit hyperactivity disorder, predominantly inattentive type 4 Pool Brown. [address], [place], [place], [address], [place]. tel:[phone] Referring Provider: Haydee Viera, [address] [place], [address]. tel:[phone] PSYTX, 45 MIN W/PT [facility], [address], [place], [place], [address] , [place] [phone] [place] Major depressive disorder, recurrent, moderatePerso nal history of psychological abuse in childhood 4 Pool Brown. [address], [place], [place], [address], [place]. tel:[phone] Referring Provider: Yolanda Cerna, [address] [place], [address]. tel:[phone] [facility], [address], [place], [place], [address] , [place] tel:[phone] [facility] Major depressive disorder, recurrent, moderate Apr- 4 Ansures De Jimenez Dania. [address], [place], [address], [place]. [phone] Referring Provider: Zee Cash, [address] [place], [address]. tel:[phone] PSYTX, 45 MIN W/PT [facility], [address], [place], [place], [address] , [place] tel:[phone] [place] Major depressive disorder, recurrent, moderatePerso nal history of psychological abuse in childhood Apr-06 27- 4 Pool Brown. [address], [place], [place], [address], [place]. [phone] OFFICE/OUTPA TIENT VISIT, EST [facility], [address], [place], [place], [address] , [place] tel:[phone] [place] med management (chief complaint) Major depressive disorder, recurrent, moderateGener alized anxiety disorderAtten tion deficit hyperactivity disorder (ADHD), unspecified ADHD typeAutism spectrum disorderPerso nal history of psychological abuse in childhood Aug- 4 Eryn Guerrero. [address], [place], [address], [place]. tel:[phone] PSYTX, 45 MIN W/PT [facility], [address], [place], [place], [address] , [place] [phone] [place] Major depressive disorder, recurrent, moderate Apr- 4 Pool Brown. [address], [place], [place], [address], [place]. tel:[phone] Referring Provider: Haydee Viera, [address] [place], [address]. tel:[phone] [facility], [address], [place], [place], [address] , [place] tel:[phone] [facility] FFS Major depressive disorder, recurrent, moderate Apr-1 0-202 4 Ansures De Jimenez Dania. [address], [place], [address], [place]. tel:[phone] Referring Provider: Zee Cash, [address] [place], [address]. tel:[phone] [facility], [address], [place], [place], [address] , [place] [phone] [facility] FFS Major depressive disorder, recurrent, moderate Apr-0 9-202 4 Ansures De Jimenez Dania. [address], [place], [address], [place]. tel:[phone] Referring Provider: Yolanda Cerna, [address] [place], [address]. tel:[phone] PSYTX, 45 MIN W/PT [facility], [address], [place], [place], [address] , [place] [phone] [place] Major depressive disorder, recurrent, moderateAutis m spectrum disorder Apr-0 8-202 4 Pool Brown. [address], [place], [place], [address], [place]. tel:[phone] PSYCH DIAG EVAL W/MED SRVCS [facility], [address], [place], [place], [address] , [place] [phone] [place] psychiatric evaluation and consult (chief complaint) Major depressive disorder, recurrent, moderateGener alized anxiety disorderAtten tion-deficit hyperactivity disorder, predominantly inattentive typeAutism spectrum disorderSenso ry processing difficultyPer kandace history of psychological abuse in childhood Apr-0 5- 4 Eryn Guerrero. [address], [place], [address], [place]. tel:[phone] [facility], [address], [place], [place], [address] , [place] tel:[phone] [facility] FFS Major depressive disorder, recurrent, moderate Apr-0 2- 4 Ansures De Tony Najera. [address], [place], [address], [place]. tel:[phone] Referring Provider: Zee Cash, [address] [place], [address]. tel:[phone] PSYTX, 45 MIN W/PT [facility], [address], [place], [place], [address] , [place] tel:[phone] [place] Major depressive disorder, recurrent, moderateGener alized anxiety disorder Apr-0 4 Pool Brown. [address], [place], [place], [address], [place]. tel:[phone] Referring Provider: Shawn William, [address], [place], [address]. tel:[phone] [facility], [address], [place], [place], [address] , [place] tel:[phone] [place] Major depressive disorder, recurrent, moderateAutis m spectrum disorderGener alized anxiety disorder Nov- 3 Pool Brown. [address], [place], [place], [address], [place]. tel:[phone] PSYTX, 45 MIN W/PT [facility], [address], [place], [place], [address] , [place] tel:[phone] [place] Major depressive disorder, recurrent, moderateAutis m spectrum disorder 3 Lanza Stephanie. [address], [place], [place], [address], [place]. tel:[phone] Referring Provider: Haydee Viera, [facility] [place], [address]. tel:[phone] PSYTX, 45 MIN W/PT [facility], [address], [place], [place], [address] , [place] tel:[phone] [place] Autism spectrum disorderMajor depressive disorder, recurrent, moderate 3 Pool Stephanie. [address], [place], [place], [address], [place]. tel:[phone] Referring Provider: Haydee Viera, [facility] [place], [address]. tel:[phone] [facility], [address], [place], [place], [address] , [place] tel:[phone] [facility] [place] [facility] F[facility] Adjustment disorder with mixed anxiety and depressed moodAttention -deficit hyperactivity disorder, predominantly inattentive typeAutism spectrum disorderDiffi culty controlling angerGenerali zed anxiety disorderPerso nal history of psychological abuse in childhood 3 Jayson Jamison. [address], [place], [address], [place]. tel:[phone] Referring Provider: Omer Jennings, [address] [place], [address]. tel:[phone] OFFICE/OUTPA TIENT VISIT, EST [facility], [address], [place], [place], [address] , [place] tel:[phone] [place] Medication Follow Up (chief complaint) Adjustment disorder with mixed anxiety and depressed moodAttention -deficit hyperactivity disorder, predominantly inattentive typeAutism spectrum disorderDiffi culty controlling angerGenerali zed anxiety disorderPerso nal history of psychological abuse in childhood 3 Michaela Tello. [address], [place], [address], [place]. tel:[phone] Referring Provider: Omer Jennings, [address] [place], [address]. tel:[phone] PSYTX, 45 MIN W/PT [facility], [address], [place], [place], [address] , [place] tel:[phone] [place] Generalized anxiety disorderPerso nal history of psychological abuse in childhood 3 Pool Brown. [address], [place], [place], [address], [place]. tel:[phone] Referring Provider: Haydee Viera, [address] [place] [address], [address]. tel:[phone] PSYTX, 60 MIN W/PT [facility], [address], [place], [place], [address] , [place] tel:[phone] [place] Generalized anxiety disorderPerso nal history of psychological abuse in childhood 3 Pool Brown. [address], [place], [place], [address], [place]. tel:[phone] Referring Provider: Federica Millan, [address], [place], [address]. tel:[phone] PSYTX, 60 MIN W/PT [facility], [address], [place], [place], [address] , [place] tel:[phone] [place] Generalized anxiety disorderPerso nal history of psychological abuse in childhood 3 Pool Brown. [address], [place], [place], [address], [place]. tel:[phone] Referring Provider: Bruce Sigala, [address] [place] [address], [address]. tel:[phone] [facility], [address], [place], [place], [address] , [place] [phone] [facility] FFS Generalized anxiety disorderPerso nal history of psychological abuse in childhood 3 Jayson Jamison. [address], [place], [address], [place]. tel:[phone] Referring Provider: Omer Jennings, [address] [place], [address]. tel:[phone] PSYCH DIAG EVAL W/MED SRVCS [facility], [address], [place], [place], [address] , [place] [phone] [facility] Psychiatric Evaluations (chief complaint) Generalized anxiety disorderMajor depressive disorder, recurrent, moderateAtten tion-deficit hyperactivity disorder, predominantly inattentive typeDifficult y controlling angerAutism spectrum disorderSenso ry processing difficultyPer kandace history of psychological abuse in childhood 3 Michaela Tello. [address], [place], [address], [place]. tel:[phone] Referring Provider: Omer Jennings, [address] [place], [address]. tel:[phone] PSYTX, 45 MIN W/PT [facility], [address], [place], [place], [address] , [place] [phone] [place] Generalized anxiety disorderPerso nal history of psychological abuse in childhood 3 Pool Brown. [address], [place], [place], [address], [place]. tel:[phone] Referring Provider: Federica Millan, [address], [place], [address]. tel:[phone] PSYTX, 60 MIN W/PT [facility], [address], [place], [place], [address] , [place] tel:[phone] [place] Generalized anxiety disorder 3 Pool Brown. [address], [place], [place], [address], [place]. tel:[phone] Referring Provider: Haydee Viera, [address] [facility], [place], [address]. tel:[phone] PSYCH DIAGNOSTIC EVALUATION [facility], [address], [place], [place], [address] , [place] tel:[phone] [place] Adjustment disorder with mixed anxiety and depressed mood 3 Caleb Mccollum. [address], [place], [address], [place]. [phone] Referring Provider: Osiris León, [address] [place], [address]. tel:[phone] [facility], [address], [place], [place], [address] , [place] tel:[phone] [place] Major depressive disorder, recurrent, moderateGener alized anxiety disorderAutis m 2 Pool Brown. [address], [place], [place], [address], [place]. tel:[phone] PSYTX, 30 MIN W/PT [facility], [address], [place], [place], [address] , [place] tel:[phone] [place] Major depressive disorder, recurrent, moderate 2 Pool Brown. [address], [place], [place], [address], [place]. tel:[phone] Referring Provider: Stephanie Lanza, [address], [place], [address]. tel:[phone] PSYTX, 30 MIN W/PT [facility], [address], [place], [place], [address] , [place] tel:[phone] [place] Major depressive disorder, recurrent, moderateGener alized anxiety disorder 2 Pool Brown. [address], [place], [place], [address], [place]. tel:[phone] Referring Provider: Stephanie Lanza, [address], [place], [address]. tel:[phone] [facility], [address], [place], [place], [address] , [place] tel:[phone] [place] FFS No Information 2 Elenita Serrano. [address], [place], [address], [place]. tel:[phone] Referring Provider: Maggie Huang, [address] [place], [address]. tel:[phone] OFFICE/OUTPA TIENT VISIT, EST [facility], [address], [place], [place], [address] , [place] tel:[phone] [place] medication management (chief complaint) Generalized anxiety disorderAutis mMajor depressive disorder, recurrent, moderateAtten tion-deficit hyperactivity disorder, predominantly inattentive typeMarijuana use 2 Mau Newell. [address], [place], [address], [place]. tel:[phone] Referring Provider: Osiris León, [address] [place], [address]. tel:[phone] PSYTX, 45 MIN W/PT [facility], [address], [place], [place], [address] , [place] tel:[phone] [place] Major depression, recurrent, chronic 2 Pool Brown. [address], [place], [place], [address], [place]. tel:[phone] Referring Provider: Stephanie Lanza, [address], [place], [address]. tel:[phone] PSYTX, 45 MIN W/PT [facility], [address], [place], [place], [address] , [place] tel:[phone] [place] Major depression, recurrent, chronicSiblin g Relational Problem September- 2 Pool Brown. [address], [place], [place], [address], [place]. tel:[phone] Referring Provider: Stephanie Lanza, [address], [place], [address]. tel:[phone] OFFICE/OUTPA TIENT VISIT, EST [facility], [address], [place], [place], [address] , [place] [phone] [place] medication management (chief complaint) Major depression, recurrent, chronicGenera lized anxiety disorderAutis mAttention and concentration deficit 2 Mau Newell. [address] [place] [address], [address], [place]. [phone] Referring Provider: Osiris León, [address] [place] [address], [address]. [phone] OFFICE/OUTPA TIENT VISIT, EST [facility], [address], [place], [place], [address] , [place] [phone] [place] medication management (chief complaint) Major depression, recurrent, chronicSiblin g Relational ProblemGenera lized anxiety disorderAutis mAttention and concentration deficit 2 Mau Newell. [facility] [address], [address], [place]. tel:[phone] Referring Provider: Osiris León, [facility] [place], [address]. tel:[phone] PSYTX, 45 MIN W/PT [facility], [address], [place], [place], [address] , [place] [phone] [place] Major depression, recurrent, chronicSiblin g Relational Problem 2 Pool Brown. [address], [place], [place], [address], [place]. tel:[phone] Referring Provider: Stephanie Lanza, [address], [place], [address]. tel:[phone] OFFICE/OUTPA TIENT VISIT, EST [facility], [address], [place], [place], [address] , [place] [phone] [place] medication management (chief complaint) Major depression, recurrent, chronicGenera lized anxiety disorderAtten tion and concentration deficit 2 Mau Newell. [address] [place] [address], [address], [place]. tel:[phone] Referring Provider: Osiris León, [address] [place] [address], [address]. tel:[phone] PSYTX PT&/FAMILY 45 MINUTES [facility], [address], [place], [place], [address] , [place] tel:[phone] [place] Major depression, recurrent, chronicGenera lized anxiety disorder 2 Pool Brown. [address], [place], [place], [address], [place]. tel:[phone] Referring Provider: Stephanie Lanza, [address], [place], [address]. tel:[phone] PSYTX PT&/FAMILY 45 MINUTES [facility], [address], [place], [place], [address] , [place] [phone] [place] Major depression, recurrent, chronicGenera lized anxiety disorder 2 Pool Brown. [address], [place], [place], [address], [place]. tel:[phone] Referring Provider: Stephanie Lanza, [address], [place], [address]. tel:[phone] OFFICE/OUTPA TIENT VISIT, EST [facility], [address], [place], [place], [address] , [place] tel:[phone] [place] medication management (chief complaint) Major depression, recurrent, chronicGenera lized anxiety disorderImpul sivenessAtten tion and concentration deficit 2 Mau Newell. [address] [place] [address], [address], [place]. tel:[phone] Referring Provider: Osiris León, [address] [place] [address], [address]. tel:[phone] OFFICE/OUTPA TIENT VISIT, EST [facility], [address], [place], [place], [address] , [place] [phone] [place] medication management (chief complaint) Major depression, recurrent, chronicGenera lized anxiety disorderImpul sivenessAtten tion and concentration deficit 2 Mau Newell. [address] [place] [address], [address], [place]. tel:[phone] Referring Provider: Osiris León, [address] [place] [address], [address]. tel:[phone] PSYTX PT&/FAMILY 45 MINUTES [facility], [address], [place], [place], [address] , [place] [phone] [place] Major depression, recurrent, chronicGenera lized anxiety disorderImpul sivenessAtten tion and concentration deficit 2 Pool Brown. [address], [place], [place], [address], [place]. tel:[phone] Referring Provider: Stephanie Lanza, [address], [place], [address]. tel:[phone] [facility], [address], [place], [place], [address] , [place] tel:[phone] [facility] No Information 1 Deacon Claudette. [address] [facility], [place], [place], [address], [place]. tel:[phone] Referring Provider: Claudette Worthy, [address] [facility] [address], [place], [address]. tel:[phone] OFFICE/OUTPA TIENT VISIT, [facility] [[email or web address]] [facility], [address], [place], [place], [address] , [place] tel:[phone] [place] medication management (chief complaint) Major depression, recurrent, chronicGenera lized anxiety disorderImpul sivenessAtten tion and concentration deficit 1 Mau Newell. [address] [place] [address], [address], [place]. tel:[phone] Referring Provider: Osiris León, [address] [place] [address], [address]. tel:[phone] PSYTX PT&/FAMILY 45 MINUTES [facility], [address], [place], [place], [address] , [place] tel:[phone] [place] Major depression, recurrent, chronicGenera lized anxiety disorderImpul sivenessAtten tion and concentration deficitAnxiet y depression 1 Pool Brown. [address], [place], [address], [place]. tel:[phone] Referring Provider: Stephanie Lanza, [address], [place], [address]. tel:[phone] PSYTX PT&/FAMILY 45 MINUTES [facility], [address], [place], [place], [address] , [place] [phone] [place] Major depression, recurrent, chronicGenera lized anxiety disorderImpul sivenessAtten tion and concentration deficitAnxiet y depression 1 Pool Brown. [address], [place], [place], [address], [place]. tel:[phone] Referring Provider: Bruce Sigala, [address] [facility], [place], [address]. tel:[phone] OFFICE/OUTPA TIENT VISIT, [facility] [[email or web address]] [facility], [address], [place], [place], [address] , [place] [phone] Svitlana rash (chief complaint) Viral rashBody mass index (BMI) 40.0-44.9, adultEncounte r for immunizationA cute viral pharyngitis 1 LILIAM BATEMAN. [address], [place], [place], [address], [place]. tel:[phone] Referring Provider: FRANSICO RICKETTS, [address], [place], [address]. tel:[phone] PSYTX PT&/FAMILY 30 MINUTES [facility], [address], [place], [place], [address] , [place] tel:[phone] [place] Major depression, recurrent, chronicGenera lized anxiety disorderImpul sivenessAtten tion and concentration deficitAnxiet y depression 1 Pool Brown. [address], [place], [place], [address], [place]. tel:[phone] Referring Provider: Stephanie Lanza, [address], [place], [address]. tel:[phone] PSYTX PT&/FAMILY 30 MINUTES [facility], [address], [place], [place], [address] , [place] tel: [phone] [place] Major depression, recurrent, chronicGenera lized anxiety disorderImpul sivenessAtten tion and concentration deficitAnxiet y depression Sep-2 1 Pool Brown. [address], [place], [place], [address], [place]. tel:[phone] Referring Provider: Stephanie Lanza, [address], [place], [address]. tel:[phone] PSYTX PT&/FAMILY 30 MINUTES [facility], [address], [place], [place], [address] , [place] tel: [phone] [place] Major depression, recurrent, chronicGenera lized anxiety disorderImpul sivenessAtten tion and concentration deficitAnxiet y depression Sep-0 1 Pool Brown. [address], [place], [place], [address], [place]. tel:[phone] Referring Provider: Stephanie Lanza, [address], [place], [address]. tel:[phone] PSYTX PT&/FAMILY 45 MINUTES [facility], [address], [place], [place], [id number] , [place] tel: [phone] [place] Major depression, recurrent, chronicGenera lized anxiety disorderImpul sivenessAtten tion and concentration deficitAnxiet y depression Aug- 1 Pool Brown. [address], [place], [place], [id number], [place]. tel:[phone] Referring Provider: Emma Hernandez, [address], [place], [address]. tel:[phone] OFFICE/OUTPA TIENT VISIT, EST [facility], [address], [place], [place], [id number] , [place] [phone] José depression/an xiety/difficu lty concentrating (chief complaint) Major depression, recurrent, chronicGenera lized anxiety disorderImpul sivenessAtten tion and concentration deficit 1 Mau Newell. [address] [place] [address], [id number], [place]. tel:[phone] Referring Provider: Osiris León, [address] [place] [address], [address]. tel:[phone] PSYTX PT&/FAMILY 45 MINUTES [facility], [address], [place], [place], [id number] , [place] [phone] [place] Major depression, recurrent, chronicGenera lized anxiety disorderImpul sivenessAtten tion and concentration deficit 1 Pool Brown. [address], [place], [place], [id number], [place]. tel:[phone] Referring Provider: Stephanie Lanza, [address], [place], [address]. tel:[phone] OFFICE/OUTPA TIENT VISIT, EST [facility], [address], [place], [place], [id number] , [place] [phone] [place] Exposure to Covid19 positive person (chief complaint) Exposure to COVID-19 virusPain in throatCough 1 Ar Bush. [address], [place], [id number], [place]. tel:[phone] Referring Provider: Eleazar Joyner, [address] [place], [address]. tel:[phone] PSYCH DIAG EVAL W/MED SRVCS [facility], [address], [place], [place], [id number] , [place] tel:[phone] [place] ADHD, mood, impulse control (chief complaint) Attention and concentration deficitMajor depression, recurrent, chronicGenera lized anxiety disorderImpul siveness 1 Mau Newell. [address] [place] [address], [id number], [place]. tel:[phone] Referring Provider: Osiris León, [address] [place] [address], [address]. tel:[phone] PSYCH DIAGNOSTIC EVALUATION [facility], [address], [place], [place], [id number] , [place] tel:[phone] [place] AutismAnxiety depression 1 Josh Cha. [address] [place] [address], [id number], [place]. tel:[phone] Referring Provider: Emma Hernandez, [address], [place], [address]. tel:[phone] OFFICE/OUTPA TIENT VISIT, NEW [facility], [address], [place], [place], [id number] , [place] tel:[phone] [facility] (chief complaint) Class 3 severe obesity due to excess calories without serious comorbidity with body mass index (BMI) of 40.0 to 44.9 in adultBody mass index [BMI]40.0-44. 9, adultAttentio n deficit hyperactivity disorder (ADHD), unspecified ADHD typeAutism 1 Ar Bush. [address] [place], [place], [id number], [place]. tel:[phone] Referring Provider: Eleazar Joyner, [address] [place], [address]. tel:[phone] Family History Family Member Type Diagnosis Age At Onset Paternal grandmother Problem stroke Maternal grandmother Problem Diabetes mellitus Father Problem Diabetes mellitus Immunizations Vaccine Date Status Comments Influenza, 1 dose, preservative free administered Note: PT was observe d for allergic reaction for 5min following vaccine verified by karina east ; Source: New Immunization Record Payers Payer name Insurance type Covered libertarian ID Donna keller(s) [facility] ([facility] [id number] [facility] [id number] Social History Type Description Quantity Date [...] Referred To: [facility] [address] [place] [address] [address] [place], [phone] Ordered: Referrals: s -Psychology. [facility] [...] She is planning to move back to [place] to be with her parents. She is not doing well in her current situation and needs to leave. 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 She is going to leave for [place] today. She is going to be driving there with her father. Planning to live with her parents in [place]. 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 depression/anxiety/d ifficulty concentrating depression/anxiety/d ifficulty concentrating [...] denies .Pt recently visited a friend in [place]. She explains she was able to receive assistance at the airport due to cognitive dx from neuropsych eval. Exposure to Covid19 positive person Exposure to Covid19 positive person (comments) Patient [...] She had sore throat 2 days ago. ADHD, mood, impulse control ADHD, mood, impulse [...] is here to establish care. Previous PCP [facility] in [place]. She carries a PMH of obesity s/p gastric sleeve surgery, SUKHWINDER 2013 (not on CPAP), and recently diagnosed with ADHD and autism on 09/2020. 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 Diet is regular. She was referred to [...] emergency room for any emergencies.6. Crisis line [phone] information given to patient.7. Follow up with PCP for medical treatment.. -Patient provides informed verbal consent for psychiatric medication. Patient educated on increased risks/side effects of any prescriptions with concurrent use of ETOH and illicit substances including risks of profound sedation, POTATO CHIP MAKER depression and . Side effects profiles of prescriptions were reviewed at length including but not limited to Nausea/vomiting/headaches/GI distress/drug-drug interactions/seizure threshold reduction/Serotonin syndrome/SHS/Cardiac abnormalities/black box warnings/neuroleptic malignant syndrome/POTATO CHIP MAKER depression and patient is able to verbally [...] emergency room for any emergencies.6. Crisis line [phone] information given to patient.7. Follow up with PCP for medical treatment.. -Patient provides informed verbal consent for psychiatric medication. Patient educated on increased risks/side effects of any prescriptions with concurrent use of ETOH and illicit substances including risks of profound sedation, POTATO CHIP MAKER depression and . Side effects profiles of prescriptions were reviewed at length including but not limited to Nausea/vomiting/headaches/GI distress/drug-drug interactions/seizure threshold reduction/Serotonin syndrome/SHS/Cardiac abnormalities/black box warnings/neuroleptic malignant syndrome/POTATO CHIP MAKER depression and patient is able to verbally [...] treatment. -Counseling: CONTINUE-Case Management: Referral for Case Management/Hot Wound Spring Production Supervisor/Peer Support for assistance with: last contact 04/2021. [...] services): -[facility] [address] [place] [address]., [address], [place] [address]; -[facility] ([facility]); -Suicide Prevention Lifeline; (117) 810-4539789-5488-Kknkyd-up in 6 weeks. Pt provides informed verbal consent for psychiatric medication. Pt educated on increased risks/side effects of any prescriptions with concurrent use of ETOH and illicit substances including risks of profound sedation, POTATO CHIP MAKER depression and . Side effects of prescriptions were reviewed at length including but not limited to Nausea/Vomiting/Headaches/GI Distress/Drug-Drug interactions/Seizure threshold reduction/Serotonin Syndrome/SJS/Cardiac abnormalities/Black box warnings/Neuroleptic Malignant Syndrome/POTATO CHIP MAKER Depression and patient is able to verbally [...] treatment. -Counseling: CONTINUE-Case Management: Referral for Case Management/Hot Wound Spring Production Supervisor/Peer Support for assistance with: last contact 04/2021-The [...] services): -[facility] located at [address] [place] [address], [address], [place] [address]; -[facility] ([facility]out [facility]); -Suicide Prevention Lifeline; (660) 318-7798634-3727-Obvejl-up in 6 weeks. Pt provides informed verbal consent for psychiatric medication. Pt educated on increased risks/side effects of any prescriptions with concurrent use of ETOH and illicit substances including risks of profound sedation, POTATO CHIP MAKER depression and . Side effects of prescriptions were reviewed at length including but not limited to Nausea/Vomiting/Headaches/GI Distress/Drug-Drug interactions/Seizure threshold reduction/Serotonin Syndrome/SJS/Cardiac abnormalities/Black box warnings/Neuroleptic Malignant Syndrome/POTATO CHIP MAKER Depression and patient is able to verbally [...] treatment. -Counseling: CONTINUE-Case Management: Referral for Case Management/Hot Wound Spring Production Supervisor/Peer Support for assistance with: last contact 04/2021-The [...] services): -[facility] located at [address] [place] [address], [address], [place] [address]; -[facility] ([facility]); -Suicide Prevention Lifeline; (577) 126-2326014-7580-Wzxbpe-up in 3 weeks. Pt provides informed verbal consent for psychiatric medication. Pt educated on increased risks/side effects of any prescriptions with concurrent use of ETOH and illicit substances including risks of profound sedation, POTATO CHIP MAKER depression and . Side effects of prescriptions were reviewed at length including but not limited to Nausea/Vomiting/Headaches/GI Distress/Drug-Drug interactions/Seizure threshold reduction/Serotonin Syndrome/SJS/Cardiac abnormalities/Black box warnings/Neuroleptic Malignant Syndrome/POTATO CHIP MAKER Depression and patient is able to verbally [...] treatment. -Counseling: CONTINUE-Case Management: Referral for Case Management/Hot Wound Spring Production Supervisor/Peer Support for assistance with: last contact 04/2021-The [...] services): -[facility] located at [address] [place] [address], [address], [place] [address]; -[facility] ([facility]); -Suicide Prevention Lifeline; (480) 391-3247762-2847-Pcqoqa-up in 2 and 6 weeks. Pt provides informed verbal consent for psychiatric medication. Pt educated on increased risks/side effects of any prescriptions with concurrent use of ETOH and illicit substances including risks of profound sedation, POTATO CHIP MAKER depression and . Side effects of prescriptions were reviewed at length including but not limited to Nausea/Vomiting/Headaches/GI Distress/Drug-Drug interactions/Seizure threshold reduction/Serotonin Syndrome/SJS/Cardiac abnormalities/Black box warnings/Neuroleptic Malignant Syndrome/POTATO CHIP MAKER Depression and patient is able to verbally [...] treatment. -Counseling: CONTINUE-Case Management: Referral for Case Management/Hot Wound Spring Production Supervisor/Peer Support for assistance with: last contact 04/2021-The [...] at [address], [place] [address]; -[facility] ([facility]); -Suicide Prevention Lifeline; (596) 705-4217192-4965-Vebzfe-up in 6 weeks. Pt provides informed verbal consent for psychiatric medication. Pt educated on increased risks/side effects of any prescriptions with concurrent use of ETOH and illicit substances including risks of profound sedation, POTATO CHIP MAKER depression and . Side effects of prescriptions were reviewed at length including but not limited to Nausea/Vomiting/Headaches/GI Distress/Drug-Drug interactions/Seizure threshold reduction/Serotonin Syndrome/SJS/Cardiac abnormalities/Black box warnings/Neuroleptic Malignant Syndrome/POTATO CHIP MAKER Depression and patient is able to verbally [...] at [address], [place] [address]; -[facility] ([facility]); -Suicide Prevention Lifeline; (114) 665-3218925-0238-Gdblba-up in 4 weeks. Pt provides informed verbal consent for psychiatric medication. Pt educated on increased risks/side effects of any prescriptions with concurrent use of ETOH and illicit substances including risks of profound sedation, POTATO CHIP MAKER depression and . Side effects of prescriptions were reviewed at length including but not limited to Nausea/Vomiting/Headaches/GI Distress/Drug-Drug interactions/Seizure threshold reduction/Serotonin Syndrome/SJS/Cardiac abnormalities/Black box warnings/Neuroleptic Malignant Syndrome/POTATO CHIP MAKER Depression and patient is able to verbally [...] services): -[facility] located at [address] [place] [address], [address], [place] [address]; -[facility] ([facility]); -Suicide Prevention Lifeline; (551) 689-8167885-6586-Nduzqj-up in 6 weeks Related to Major depression, [...] [facility] located at [address], [place] [address]; -[facility] ([facility]); -Suicide Prevention Lifeline; (890) 717-9611314-2301-Houagl-up in 3 weeks Related to Major depression, [...] can also call the crisis line at [phone]. 7) Follow-up in 2 weeks or sooner [...] ed to the followin. Dr Caleb Vicente ([facility] in [place]). 2. [facility]. Related to Attention deficit hyperactivity disorder (ADHD), unspecified ADHD type You have been referr ed to the followin. Dr Caleb Vicente ([facility] in [place]). 2. [facility]. [...]
--- OUTSIDE RECORDS SUMMARY | 2024-08-31 13:58 | XMS_ITS | Encounter Summary ---
Author Organization [facility] Address [address] [place] [address] Care Team Providers Care Captain Assistant Name Role Phone Kimberly Hui MD Primary Care Provider + Encounter Details Date Type Department Care Team (Late st Contact Info) Description 07/06/2024 MyChart Message Enc [facility] Medical [facility] Family Medicine [facility] [address] [facility] [address] [place] [phone] Kimberly Hui MD [address] [place] [phone] Triglycerides Social History Tobacco Use Types Packs/Day [...] on file Legal Sex Female 2:46 PM BOAT CAPTAIN Gender Identity Female 05/13/2024 1:38 PM BOAT CAPTAIN Sexual Orientation Bisexual 05/13/2024 1: 38 PM BOAT CAPTAIN Occupation Industry Job Start Date Job End Date [employer] Not on file Not on file No t on file documented as of this encounter Plan of Treatment Upcoming Encounters Date Type Department Care Team (Late st Contact Info) Description 09/24/2024 11:30 AM CDT Office Visit [facility] Medical [facility] Family Medicine [facility] [address] [place] [id number] Kimberly Hui MD [address] [place], [place] [address] documented as of this encounter Visit Diagnoses Not on filedocumented in this encounter Additional Health Concerns Assessment Noted Time PHQ-9 Depression Total Score: 19 025 10:50 AM BOAT CAPTAIN documented as of this encounter Care Teams Captain Assistant Relationship Specialty Start Date End Date Kimberly Hui MD [address] [place] [address] PCP - General FAMILY PRACTICE 06/24/24 documented as of this encounter
[2024-08-31] MEDS: valACYclovir HCL 500 MG TABLET 1000 MG PO (14:03)
== END 2024-08-31 14:09 | disposition home or self-care (01) ==
PROVIDERS: Emergency Provider Student in an Organized Health Care Education/Training Program; PCP Student in an Organized Health Care Education/Training Program
DX: G51.0 Bell's palsy (principal); F41.9 Anxiety disorder, unspecified; F84.0 Autistic disorder
CPT/HCPCS: 99283; A9270; J7512

== ENCOUNTER 2025-01-04 08:28 | Emergency (ER) | payer BC, SELFPAY ==
[2025-01-04 08:36] VITALS: BP 101/65; PULSE 79; RESP 18; TEMP 36.4; O2SAT 99
--- OUTSIDE RECORDS SUMMARY | 2025-01-04 08:38 | XMS_ITS | Patient Health Record ---
Author Organization [facility] Address [address] [id number] Care Team Providers Care Gin Pole Operator Name Role Phone Tatum Lucas Primary Care Provider Unavail able Keisha, Jugroop Unavailable [phone] Reason For Referral No Information Medications Medication SIG (Take, Route, Frequency, Duration) Notes Start Date End Date Status + Complete Multi Active Social History Tobacco Use: Social History Observation Description Date Details (start date - stop date) Never Smoker NA - NA Smoking Question Answer Notes Status: Never smoker Problems Problem Type SNOMED Code ICD Code Onset Dates Problem Status W/U Status Risk Notes Problem Morbid obesity (disorder) (313352192) Morbid (severe) obesity due to excess calories (E66.01) Active confirmed Problem Obstructive sleep apnea syndrome (disorder) (85889543) Obstructive sleep apnea (adult) (pediatric) (G47.33) Active confirmed Problem Body mass index 40+ - morbidly obese (623746672) Body mass index (BMI) of 50-59.9 in adult (Z68.43) Active confirmed Plan Of Treatment Pending Test Test Name Order Date Split night polysomnogram 04/04/2017 Split night polysomnogram 05/08/2017 Pulmonary function test with diffusion c apacity and lung volume 04/04/2017 Pulmonary function test with diffusion c apacity and lung volume 05/08/2017 Insurance Providers Payer Name Payer Address Payer Phone Subscriber Number Group Number Insured Name Patient Relationship to Insured Coverage Start Date Coverage End Date [facility] [address] [place] [phone] [id number] [employer] Izaguirre Self - patient is the insured Medical (General) History Medical History History ICD Code HX of Tubercolosis Gerd Allergies
[2025-01-04 08:50] LABS: EDSTREPNEGPOS1 Negative (Negative)
--- NOTE | 2025-01-04 09:02 | ED.URI ---
HPI - URI/Sore Throat General Chief Complaint: Upper Respiratory Infection Stated Complaint: sore throat Time Seen by Provider: 01/04/25 08:50 Source: patient and RN notes reviewed Mode of arrival: ambulatory Limitations: no limitations History of Present Illness HPI Narrative: The 24-year-old female presents Express Care complaining of sore throat for approximately 4 days. Patient also reports congestion. Patient denies any fevers, body aches, chills, nausea vomiting, chest pain, shortness of breath cough earache, runny nose or any other symptoms. Patient says a sore throat primarily on the right side she reports pain with swallowing. Patient denies any difficulty swallowing or difficulty clearing secretions. Take Tylenol help with the pain. Related Data Home Medications ?Medication ?Instructions ?Recorded ?Confirmed ?Last Taken ?Type hydroxyzine HCl 25 mg tablet mg 06/02/24 Unknown History sertraline 100 mg tablet mg 06/02/24 Unknown History drospirenone 3 mg-ethinyl tablet 01/04/25 Unknown History estradiol 0.02 mg tablet Allergies Allergy/AdvReac Type Severity Reaction Status Date / Time No Known Allergies Allergy Verified 01/04/25 08:32 Review of Systems Review of Systems: CONSTITUTIONAL: Denies fever, chills, or sweats. EYES: Denies visual changes, redness, or discharge. ENT: Denies rhinorrhea, or otalgia. Positive for sore throat congestion. CARDIOVASCULAR: Denies chest pain, palpitations, or edema. RESPIRATORY: Denies cough or dyspnea. GASTROINTESTINAL: Denies abdominal pain, nausea, vomiting, or diarrhea. GENITOURINARY: Denies dysuria or hematuria. SKIN: Denies rash or itching. MUSCULOSKELETAL: Denies back pain, joint pain, or myalgia. NEUROLOGIC: Denies headache, numbness, or weakness. PSYCHIATRIC: Denies anxiety or depression. All other systems reviewed are negative, except as documented in HPI. [facility] Past Medical History Medical History PCOS (polycystic ovarian syndrome) Migraines Anxiety Autism Surgical History Surgical History No pertinent past surgical history Family History Family History Mother Family history unknown Grandparent Cerebrovascular accident Social History Social History Smoking status: Never smoker Living arrangements: with family Gender identity (if verbalized by the patient): Female Comments At the time of my signature, I reviewed and agree with the nursing past medical, surgical, social, and family history. There is no relevant family history pertinent to the patient complaint. Exam Narrative: GENERAL: This is a well-nourished, well-developed adult, in no apparent distress. They are non ill-appearing, nontoxic appearing. HEAD: normocephalic, atraumatic. EYES: Sclera clear/white. Conjunctiva normal. Vision is grossly intact. Extraocular movements intact EARS: External ears normal, auditory canals clear and without drainage, TMs normal without perforation. Hearing grossly intact. NOSE: External nose normal with no obvious nasal discharge, nasal turbinates erythemic without swelling, no rhinorrhea. THROAT: Mucous membranes moist, posterior pharynx erythema without swelling, tonsils 3+ and erythemic without exudate or swelling. Uvula midline. Postnasal drip present. NECK: Neck supple, non-tender without lymphadenopathy, masses or thyromegaly. CARDIOVASCULAR: Regular rate and rhythm without murmurs, gallops, or rubs. RESPIRATORY: Clear to auscultation. Breath sounds equal bilaterally. No wheezes, rales, or rhonchi. SKIN: warm, Dry, intact with no suspicious lesions or rash, good texture and turgor. NEURO: awake, alert, and oriented to person, place and time. There were no obvious focal neurologic abnormalities. EXTREMITIES: No joint tenderness, effusion, or edema noted. Course Course Emergency Course: Portions of this record may have been created with voice recognition software Level of Care: Express Care Visit Vital Signs Vital signs: Vital Signs Temperature 97.6 F 01/04/25 08:36 Pulse Rate 79 01/04/25 08:36 Respiratory Rate 18 01/04/25 08:36 Blood Pressure 101/65 01/04/25 08:36 Pulse Oximetry 99 01/04/25 08:36 Oxygen Delivery Room Air 01/04/25 08:36 Temperature 97.6 F 01/04/25 08:36 Pulse Rate 79 01/04/25 08:36 Respiratory Rate 18 01/04/25 08:36 Blood Pressure 101/65 01/04/25 08:36 Pulse Oximetry 99 01/04/25 08:36 Oxygen Delivery Room Air 01/04/25 08:36 Reviewed MDM - URI/Sore Throat MDM Narrative Medical decision making narrative: Rapid strep negative. A throat culture is pending. Rapid COVID in flu. Symptoms likely viral in etiology. Discussed physical exam findings. Advised supportive measures and signs/symptoms to go to the ER. Pt is appropriate for outpt treatment and f/u. Lab Data Labs: Lab Results 01/04/25 01/04/25 Range/Units 08:48 09:14 POC Influenza A Ag Negative (Negative) POC Influenza B Ag Negative (Negative) POC SARS CoV-2 Ag Negative (Negative) POC Grp A Strep Screen Negative (Negative) Critical Care Time Critical Care Time Critical Care Time: No Discharge Plan Discharge Clinical Impression: Upper respiratory infection Qualifiers: URI type: unspecified viral URI Qualified Code(s): J06.9 - Acute upper respiratory infection, unspecified Patient Disposition: Home Condition: Stable Instructions: Antibiotic Form, Upper Respiratory Infection (ED) Additional Instructions: Your rapid strep swab, COVID, and flu was negative today at [facility]. You will be notified in a few days if the culture comes back positive for strep, and appropriate antibiotics will be called in for you at that time. Your symptoms are likely due to a viral illness, which is not treated with antibiotics. Viral symptoms can be present for up to 10-14 days. You may take ibuprofen 600 mg to 800 mg every 6-8 hours. Do not exceed more than 800 mg of ibuprofen per dose. Do not exceed more than 3200 mg ibuprofen in a day. You may take up to 1000 mg Tylenol every 6-8 hours. Do not exceed 1000 mg per dose, do exceed more than 4000 mg of Tylenol in a day. Rest and stay hydrated. Follow up with your PCP in 3-5 days if symptoms are not improving. Go to the ER immediately if you develop difficulty breathing or swallowing Patient Language: Lithuanian Prescriptions: No Action sertraline 100 mg tablet hydroxyzine HCl 25 mg tablet sulfamethoxazole-trimethoprim [Bactrim DS] 800-160 mg tablet 1 tablet PO Q12H Qty: 20 0RF cephalexin 500 mg capsule 500 mg PO Q6H Qty: 40 0RF drospirenone-ethinyl estradiol 3-0.02 mg tablet artificial tears(hypromellose) 0.3 % drops 1 drp LEFT EYE BID PRN (Reason: dry eyes) Qty: 15 0RF bacitracin 500 unit/gram ointment 1 applic LEFT EYE QHS 7 Days Qty: 3.5 0RF prednisone 20 mg tablet 60 mg PO DAILY 6 Days Qty: 18 0RF Rx Instructions: Start 09/01/2024. Received 1st dose in the ED 08/31. Take before 9:00 a.m. if possible valacyclovir 1 gram tablet 1,000 mg PO TID 7 Days Qty: 20 0RF Rx Instructions: received first dose in ED 08/31 afternoon Follow-up/Referrals: Korina,Kimberly Forrest MD [Primary Care Provider] - Stand Alone Forms: Work/School Release IP Time of Disposition: 09:09
[2025-01-04 09:17] LABS: EDCOVIDSCREEN Negative (Negative); EDINFLUASCREEN Negative (Negative); EDINFLUBSCREEN Negative (Negative)
== END 2025-01-04 09:17 | disposition home or self-care (01) ==
PROVIDERS: PCP Student in an Organized Health Care Education/Training Program
DX: J06.9 Acute upper respiratory infection, unspecified (principal); Z20.822 Contact with and (suspected) exposure to COVID-19
CPT/HCPCS: 87081; 87426; 87804; 87880; 99213; G0463

== ENCOUNTER 2025-03-27 13:21 | Emergency (ER) | payer BC, SELFPAY ==
--- NOTE | ~2025-03-27 | CT_ITS ---
EXAMINATION: CT brain wo con COMPARISON: None HISTORY: altered mental status TECHNIQUE: Axial images were obtained through the brain without IV contrast. CT scan performed using dose optimization techniques including the following automated exposure control; adjustment of mA and/or kV; use of iterative reconstruction technique. Automatic exposure control was used to reduce radiation dose. Permanent radiation dose record is archived to PACS. FINDINGS: No acute infarct or parenchymal hemorrhage. No abnormal mass or mass effect. No midline shift. No extra-axial fluid collections. No hydrocephalus. . Mastoid air cells unremarkable. Sinuses and orbits unremarkable. No acute fracture. No significant facial or scalp soft tissue swelling evident. No radiopaque foreign body is seen. Impression: 1.No acute intracranial abnormality. Reviewed, dictated and finalized at location P. ENTRY ASSOCIATE Impression: 1.No acute intracranial abnormality.
--- NOTE | ~2025-03-27 | XR_ITS ---
EXAMINATION: XR chest 2V, 03/27/2025 16:20 DIESEL TECH[employer]ICIAN MECH[employer]IC HISTORY: chest pain COMPARISON: No comparisons available. Technique: 2 views obtained. Findings: The lungs are clear, no effusion. No pneumothorax. Heart is normal size. Mediastinal and hilar contours are within normal limits. Bony thorax no acute abnormality. Impression: No acute cardiopulmonary abnormality. Reviewed, dictated and finalized at location P. EL TECHNICIAN MECHANIC Impression: No acute cardiopulmonary abnormality.
--- NOTE | 2025-03-27 13:23 | ECG_ITS ---
Test Date: 2025-03-27 13:29:58 Measurements Intervals [place] Rate: 80 P: 61 NC: 155 QRS: 37 QRSD: 84 T: 27 QT: 375 QTc: 434 Interpretive Statements SINUS RHYTHM NONSPECIFIC T-WAVE ABNORMALITY No previous ECG available for comparison Electronically Signed On 03-27-2025 14:15:56 TERMINAL OPERATIONS SUPERVISOR by Cheryl Manzanares M.D.
--- OUTSIDE RECORDS SUMMARY | 2025-03-27 13:24 | XMS_ITS | Clinical Summary ---
Author Organization [facility] Address [address] [place] [address] Care Team Providers Care Rattle Leak And Squeak Repairer Name Role Phone Kimberly Hui MD Primary Care Provider + Allergies Active Allergy Reactions Criticality Noted Date Comments Shellfish Protein-Containing Drug Products Anaphylaxis,Fatigue,Hives, Itching,Rash High 10/22/2011 Medications hydrOXYzine (ATARAX) 25 MG tablet Take 1 [...] 90 capsule 3 06/24/2024 06/24/19 26 Active valACYclovir (VALTREX) 1 g tablet take 1 tablet by mouth three times daily x 7 days 08/31/2024 Active Active Problems Problem Noted Date Diagnosed [...] of them at least 8 months in [id number]. Assessment & Plan (06/24/2024 9:25 AM LABEL DRIER): Chronic. Not controlled. Failed multiple medications including SSRIs sertraline, fluoxetine, Abilify which each been taken for more than 8 months. Will trial Vraylar. She does have new insurance starting in July in case her current insurance does not cover well. Mild cognitive impairment 06/24/2024 Morbid obesity 06/24/2024 Overview (09/07/2024): Recently got new insurance and check with them to see if GLP-1 is covered. She indicates that it was for diagnosis of obesity. Assessment & Plan (09/07/2024 9:05 AM CDT): Discussed GLP-1's. Discussed risks known and unknown. She is agreeable to a trial of Zepbound 2.5 mg weekly. Provided resources to assist with cost. We will check in with her in 1 month to decide on dose adjustment. We discussed the interaction between GLP-1 and her oral contraceptive. She will use a backup form of contraception. She primarily takes contraception for hidradenitis suppurativa. PCOS (polycystic ovarian syndrome) 06/24/2024 Overview (06/24/2024): Believes she had an ultrasound. Autism 10/22/2020 Overview (06/24/2024): I was diagnosed in 2020 Hidradenitis suppurativa 06/24/2016 Overview (06/24/2024): New cysts forming in the groin and beneath the breasts periodically. Has not been treated in the past. Assessment & Plan (06/24/2024 9:26 AM LABEL DRIER): Discussed doxycycline is mainstay treatment however she declines that currently as she would prefer to be off antibiotics she is open to hormonal treatment. Trial Neeta. H/O gastric sleeve 12/22/2014 Overview (06/24/2024): 2014. Encounters Date Type Department Care Team Description 01/04/2025 Scan [facility] Scanned, [facility] from Last 3 Months Immunizations Immunization Administration Dates Next Due Tdap (Generic) 05/26/2021 [...] Patient Health Questionnaire-2 Score 5 06/24/2024 Comments No Sex and Gender Information Value Date Recorded Sex Assigned at Not on file Legal Sex Female 2:46 PM LABEL DRIER Gender Identity Female 05/13/2024 1:38 PM LABEL DRIER Sexual Orientation Bisexual 05/13/2024 1: 38 PM LABEL DRIER Occupation Industry Job Start Date Job End Date [employer] Not on file Not on file No t on file Last Filed Vital Signs Vital Sign Reading Time Taken Comments Blood Pressure 111/77 09/07/2024 8:06 AM CDT Pulse 89 09/07/2024 8:06 AM CDT Temperature 36.6 C (97.8 F) 09/07/2024 8:06 AM CDT Respiratory Rate 18 05/10/2024 2:50 PM LABEL DRIER Oxygen Saturation 99% 09/07/2024 8:06 AM CDT Inhaled Oxygen Concentration - - Weight 137.5 kg (303 lb 3.2 oz) 09/07/2024 8:06 AM CDT Height 162.6 cm (5' 4) 09/07/2024 8:06 AM CDT Body Mass Index 52.04 09/07/2024 8:06 AM CDT Plan of Treatment Upcoming Encounters Date Type Department Care Team (Late st Contact Info) Description 04/18/2025 1:40 PM LABEL DRIER Office Visit [facility] - [place] [address] [place] [phone] Kimberly Hui MD [address] [place] [address] Health Maintenance Due Date Last Done Comments Hepatitis C 01/14/2016 Hepatitis B Vaccines (1 of 3 - 19+ 3-dose series) 2017 HPV Vaccines (1 - 3-dose SCD M series) 2025 COVID-19 Vaccine ( - 2024-2 6 season) 2025 Influenza Adult (#1) 2025 Annual Physical 06/24/2025 06/24/2024 Cervical Cancer Screening Pa p Smear (Age 21 to 29) Every 3 Years 06/25/2026 06/25/2023, 10/29/2022, 10/14/2022 Cervical Cancer Screening 06/25/2026 DTaP, Tdap and Td Vaccines ( 2 - Td or Tdap) 05/26/2031 05/26/2021 PHQ-2 (Physician [place]) Completed 06/24/2024 Hepatitis A Vaccines Aged Out No long er eligible based on patient's age to complete this topic Meningococcal B Vaccine Aged Out No l onger eligible based on patient's age to complete this topic Meningococcal Vaccine Aged Out No akira lizeth eligible based on patient's age to complete this topic Pneumococcal Vaccine: Pediatrics (0 to 5 Years) and At-Risk Patients (6 to 49 Years) Aged Out No longer eligible b ased on patient's age to complete this topic RSV Immunizations Under 20 Months Aged Out No longer eligible b ased on patient's age to complete this topic Insurance [facility] Care Teams Rattle Leak And Squeak Repairer Relationship Specialty Start Date End Date Kimberly Hui MD [address] [place] [phone] PCP - General FAMILY PRACTICE 06/24/24
--- OUTSIDE RECORDS SUMMARY | 2025-03-27 13:25 | XMS_ITS | Encounter Summary ---
Author Organization [facility] Address [address] [place] [address] Care Team Providers Care Relationship Manager Name Role Phone Kimberly Hui MD Primary Care Provider + Encounter Details Date Type Department Care Team (Late Contact Info) Description 07/06/2024 MyChart Message Enc [facility] Family Medicine [facility] [address] [place] [address] [phone] Kimberly Hui MD [address] [place] [address] [phone] Triglycerides Social History Tobacco Use Types Packs/Day [...] on file Legal Sex Female 2:46 PM DIRECTOR ATHLETIC Gender Identity Female 05/13/2024 1:38 PM DIRECTOR ATHLETIC Sexual Orientation Bisexual 05/13/2024 1: 38 PM DIRECTOR ATHLETIC Occupation Industry Job Start Date Job End Date [employer] Not on file Not on file No t on file documented as of this encounter Plan of Treatment Upcoming Encounters Date Type Department Care Team (Late st Contact Info) Description 04/18/2025 1:40 PM DIRECTOR ATHLETIC Office Visit [facility] [address] [place] [phone] Kimberly Hui MD [address] [place] [address] documented as of this encounter Visit Diagnoses Not on filedocumented in this encounter Additional Health Concerns Assessment Noted Time PHQ-9 Depression Total Score: 19 025 10:50 AM DIRECTOR ATHLETIC documented as of this encounter Care Teams Relationship Manager Relationship Specialty Start Date End Date Kimberly Hui MD [address] [place] [address] PCP - General FAMILY PRACTICE 06/24/24 documented as of this encounter
--- OUTSIDE RECORDS SUMMARY | 2025-03-27 13:25 | XMS_ITS | Patient Health Record ---
Author Organization [facility] Address [address] [id number] Care Team Providers Care Health Record Technician Name Role Phone Tatum Lucas Primary Care Provider Unavail able Keisha, Jugroop Unavailable [phone] Reason For Referral No Information Medications Medication [...] Status Risk Notes Problem Morbid obesity (disorder) (623605297) Morbid (severe) obesity due to excess calories (E66.01) Active confirmed Problem Obstructive sleep apnea syndrome (disorder) (46189968) Obstructive sleep apnea (adult) (pediatric) (G47.33) Active confirmed Problem Body mass index 40+ - morbidly obese (554039230) Body mass index (BMI) of 50-59.9 in [...] Insured Coverage Start Date Coverage End Date [facility] [address] [place] [address] [phone] [id number] [employer] Self - patient is the insured Medical (General) History Medical History History ICD Code HX of Tubercolosis Gerd Allergies
[2025-03-27 13:30] VITALS: BP 132/77; PULSE 74; RESP 16; TEMP 36.4; O2SAT 100
[2025-03-27 15:21] VITALS: BP 135/80; PULSE 92; RESP 15; O2SAT 100
--- NOTE | 2025-03-27 15:46 | ED_ITS ---
HPI - Anxiety General Chief Complaint: Anxiety Stated Complaint: nightly panic attacks, weight loss Time Seen by Provider: 03/27/25 15:31 History of Present Illness HPI narrative: Patient is a 25-year-old female who presents to the ER with panic attacks for 1 week. She reports she is afraid to fall asleep at night which has led her to feel weakness, brain fog, decreased p.o. intake, intermittent chest pain, and shortness of breath. Patient reports the chest pain has been present for approximately 2 days. She endorses a history of autism, depression, anxiety, gastric sleeve, and PCOS. Patient reports she is not currently medicated for her mental health conditions. She reports she would like to be evaluated by mental health intake. Patient denies suicidal or homicidal ideations. Related Data Home Medications ?Medication ?Instructions ?Recorded ?Confirmed ?Last Taken ?Type hydroxyzine HCl 25 mg tablet mg 06/02/24 Unknown Hist ory sertraline 100 mg tablet mg 06/02/24 Unknown History drospirenone 3 mg-ethinyl tablet 01/04/25 Unknown His tory estradiol 0.02 mg tablet Allergies Allergy/AdvReac Type Severity Reaction Status Date / Time shellfish derived Allergy Swelling Verified 03/27/25 13:28 of Lip/Tongue/Throat Review of Systems 2 Review of Systems: All systems reviewed & are unremarkable except as noted in HPI and below PMFSH Past Medical History Medical History PCOS (polycystic ovarian syndrome) Migraines Anxiety Autism Surgical History Surgical History No pertinent past surgical history Family History Family History Mother Family history unknown Grandparent Cerebrovascular accident Social History Social History Smoking status: Never smoker Living arrangements: with family Gender identity (if verbalized by the patient): Female Exam 2 Narrative: GENERAL: Well appearing, obese, non-toxic, in no acute distress. HEAD: Normocephalic, atraumatic. NECK: Supple. No adenopathy, no masses. RESPIRATORY: Airway patent, respirations nonlabored. Clear to auscultation bilaterally, no rales, rhonchi, wheezing. CARDIOVASCULAR: Regular rate and rhythm without murmurs, rubs, or gallops. Peripheral pulses 2+ and equal bilaterally. ABDOMINAL: Soft, nontender, nondistended, no hepatosplenomegaly. Normoactive BS. MUSCULOSKELETAL: Moves all extremities. Strength/ROM intact without gross deformities. SKIN: Warm, dry, normal color. No rashes. NEURO: A&O X3. Speech clear. Cranial nerves II-XII intact. No ataxic movements. PSYCHIATRIC: Appropriate mood and affect. Normal interaction. Course Vital Signs Vital signs: Vital Signs Temperature 36.4 C 03/27/25 13:30 Pulse Rate 74 03/27/25 13:30 Respiratory Rate 16 03/27/25 13:30 Blood Pressure 132/77 03/27/25 13:30 Pulse Oximetry 100 03/27/25 13:30 Temperature 36.4 C 03/27/25 13:30 Pulse Rate 92 03/27/25 15:21 Respiratory Rate 15 03/27/25 15:21 Blood Pressure 135/80 03/27/25 15:21 Pulse Oximetry 100 03/27/25 15:21 MDM - Anxiety MDM Narrative Medical decision making narrative: Patient is a 25-year-old female who presents to the ER with panic attacks for 1 week. She reports she is afraid to fall asleep at night which has led her to feel weakness, brain fog, decreased p.o. intake, intermittent chest pain, and shortness of breath. Patient reports the chest pain has been present for approximately 2 days. She endorses a history of autism, depression, anxiety, gastric sleeve, and PCOS. Patient reports she is not currently medicated for her mental health conditions. She reports she would like to be evaluated by mental health intake. Patient denies suicidal or homicidal ideations. Labs Ordered: CBC, CMP, TSH, ethanol, troponin, Tylenol level, salicylate level, UA, UDS Imaging Ordered: CT brain, chest x-ray Medications Ordered: Ativan 1 mg p.o. Results: Patient's blood work results indicate no acute abnormalities. Her urine is positive for cannabinoids. Diagnosis: Anxiety Consults: Mental health intake 1744-patient is medically clear for psychiatric intake. Patient Education/Shared MDM: Mental health intake came and spoke with patient. They provided her with resources and she will follow up with them outpatient. Results of lab work and imaging shared with patient. She endorses improvement of symptoms following medication administration. Patient strongly advised to maintain hydration status upon discharge and follow-up with her PCP and psychiatrist as soon as possible. She will be discharged home with a prescription for Ambien x1 week. Strict return precautions provided. Patient verbalized understanding and is in agreement with plan. Vital signs stable at time of discharge. All questions answered. Differential Diagnosis Differential diagnosis: Likely hyperventilation, panic disorder, acute anxiety and other (Atypical chest pain, altered mental status) Lab Data Attestation: I reviewed the patient's lab results. 03/27/25 16:06 03/27/25 16:06 Labs: Lab Results 03/27/25 03/27/25 Range/Units 16:04 16:06 WBC 8.6 (4.5-10.0) K/mm3 RBC 4.62 (4.2-5.4) M/mm3 Hgb 13.3 (12.0-15.0) g/dL Hct 41.8 (37.0-47.0) % MCV 90.5 (80-100) fl MCH 28.8 (26-34) pg MCHC 31.8 L (32-36) g/dl RDW 13.0 (11.5-14.5) % Plt Count 364 (150-375) k/mm3 MPV 9.8 (7.4-10.4) fl Immature Gran % (Auto) 0.5 (0-0.5) % Neut % (Auto) 60.1 (45.5-73.1) % Lymph % (Auto) 33.4 (18.3-44.2) % [place] % (Auto) 5.3 (2.6-8.5) % Eos % (Auto) 0.2 (0-4.4) % Baso % (Auto) 0.5 (0.2-1.2) % Lymph # (Auto) 2.86 (0.9-3.2) K/mm3 [place] # (Auto) 0.5 (0.1-0.6) K/mm3 Eos # (Auto) 0.0 (0-0.3) K/mm3 Baso # (Auto) 0.0 (0.0-0.1) K/mm3 Abs Immat Gran (auto) 0.04 H (0.00-0.031) K/mm3 Absolute Neuts (auto) 5.2 (1.3-6.7) K/mm3 Absolute Nucleated RBC 0.000 (0.0-0.012) K/mm3 Nucleated RBC % 0.0 (0.0-0.2) % Sodium 140 (137-145) mmol/L Potassium 3.8 (3.4-5.0) mmol/L Chloride 104 (98-107) mmol/L Carbon Dioxide 23 (22-30) mmol/L Anion Gap 13 H (4-12) mmol/L BUN 7 (7-17) mg/dL Creatinine 0.77 (0.7-1.0) mg/dL Estim Creat Clear Calc 128 ml/min Estimated GFR > 60 (59 - ) Glucose 97 (65-110) mg/dL Calcium 9.2 (8.4-10.2) mg/dL Total Bilirubin 0.4 (0.2-1.3) mg/dL AST 27 (14-36) U/L ALT 27 (6-35) U/L Alkaline Phosphatase 58 (38-126) U/L Troponin I < 0.012 (0.000-0.034) ng/mL Total Protein 8.4 H (6.3-8.2) g/dL Albumin 4.8 (3.5-5.1) g/dL TSH 1.220 (0.465-4.680) uIU/mL Urine Color Yellow (Yellow) Urine Appearance Clear (Clear) Urine pH 7.5 (5.0-9.0) Ur Specific [place] 1.012 (1.001-1.035) Urine Protein Negative (Negative) mg/dL Urine Glucose (UA) Negative (Negative) mg/dL Urine Ketones 2+ H (Negative) mg/dL Ur Blood (Man) Negative (Negative) Urine Nitrate Negative (Negative) Urine Bilirubin Negative (Negative) Urine Urobilinogen 1.0 (<2.0) mg/dL Leukocyte Esterase Rfl Negative (Negative) GENET/UL POC Urine HCG, Qual Negative (Negative) Salicylates < 1.0 L (2-20) mg/dL Urine Opiates Screen Negative (Negative) Urine Methadone Screen Negative (Negative) Acetaminophen < 10 L (10-30) ug/mL Ur Barbiturates Screen Negative (Negative) Ur Phencyclidine Scrn Negative (Negative) Ur Amphetamine Screen Negative (Negative) U Benzodiazepines Scrn Negative (Negative) Urine Cocaine Screen Negative (Negative) U Cannabinoids Screen Positive A (Negative) Ethyl Alcohol < 10 (<10) mg/dL Imaging Data Attestation: I personally reviewed and interpreted this imaging study as follows: Radiologist's impression: Impressions Chest X-Ray 03/27/25 16:30 Impression: No acute cardiopulmonary abnormality. Head CT 03/27/25 16:30 Impression: 1.No acute intracranial abnormality. Discharge Plan Discharge Clinical Impression: Acute anxiety, Insomnia due to anxiety and fear Patient Disposition: Home Condition: Stable Instructions: Antibiotic Form, Anxiety (ED) Additional Instructions: Please return to the ER with any worsening symptoms. Follow-up with primary care provider and Psychiatry as soon as possible. Please take to the plan establish with mental health intake. Take all medications as prescribed, including regularly scheduled medications. Please take Ambien cautiously, as it can have negative side effects. Patient Language: Vietnamese Prescriptions: New zolpidem [Ambien] 5 mg tablet 5 mg PO HS PRN (Reason: insomnia) Qty: 7 0RF No Action sertraline 100 mg tablet hydroxyzine HCl 25 mg tablet sulfamethoxazole-trimethoprim [Bactrim DS] 800-160 mg tablet 1 tablet PO Q12H Qty: 20 0RF cephalexin 500 mg capsule 500 mg PO Q6H Qty: 40 0RF drospirenone-ethinyl estradiol 3-0.02 mg tablet artificial tears(hypromellose) 0.3 % drops 1 drp LEFT EYE BID PRN (Reason: dry eyes) Qty: 15 0RF bacitracin 500 unit/gram ointment 1 applic LEFT EYE QHS 7 Days Qty: 3.5 0RF prednisone 20 mg tablet 60 mg PO DAILY 6 Days Qty: 18 0RF Rx Instructions: Start 09/01/2024. Received 1st dose in the ED 08/31. Take before 9:00 a.m. if possible valacyclovir 1 gram tablet 1,000 mg PO TID 7 Days Qty: 20 0RF Rx Instructions: received first dose in ED 08/31 afternoon Follow-up/Referrals: Korina,Kimberly Forrest MD [Primary Care Provider, Unknown] Stand Alone Forms: Work/School Release IP Time of Disposition: 20:28
[2025-03-27 16:08] LABS: BEDSIDEPREGUCG Negative (Negative)
[2025-03-27] MEDS: LORazepam (*CRX) 1 MG TABLET PO (16:08)
[2025-03-27 16:14] LABS: Hematocrit 41.8 % (37.0-47.0); Hemoglobin 13.3 g/dL (12.0-15.0); Immature Granulocyte Percent A 0.5 % (0-0.5); Lymphocytes Absolute Auto 2.86 K/mm3 (0.9-3.2); Mean Corpuscular HGB Conc 31.8 g/dl (32-36); Mean Corpuscular Hemoglobin 28.8 pg (26-34); Mean Corpuscular Volume 90.5 fl (80-100); Nucleated Red Blood Cells Absolute Auto 0.000 K/mm3 (0.0-0.012); Nucleated Red Blood Cells Perc 0.0 % (0.0-0.2); Platelet Count Result 364 k/mm3 (150-375); Red Blood Count 4.62 M/mm3 (4.2-5.4); White Blood Count 8.6 K/mm3 (4.5-10.0)
[2025-03-27 16:14] LABS: Add Urine Microscopic? NO; Appearance Urine Clear (Clear); Glucose Urine UA Negative (Negative); Leukocyte Esterase Ur Negative LEU/UL (Negative); Nitrate Urine Negative (Negative); Specific Grav Ur 1.012 (1.001-1.035)
[2025-03-27 16:25] LABS: Alanine Aminotransferase 27 U/L (6-35); Albumin Level 4.8 g/dL (3.5-5.1); Alkaline Phosphatase 58 U/L (38-126); Anion Gap 13 mmol/L (4-12); Aspartate Amino Transferase 27 U/L (14-36); Bilirubin,Total 0.4 mg/dL (0.2-1.3); Blood Urea Nitrogen 7 mg/dL (7-17); Calcium 9.2 mg/dL (8.4-10.2); Carbon Dioxide 23 mmol/L (22-30); Chloride 104 mmol/L (98-107); Estimated CRCL calculation 128 ml/min; Estimated Glomerular Filt Rate > 60; Glucose 97 mg/dL (65-110); Potassium 3.8 mmol/L (3.4-5.0); Sodium 140 mmol/L (137-145); Total Protein 8.4 g/dL (6.3-8.2)
[2025-03-27 16:29] LABS: Acetaminophen < 10 ug/mL (10-30); Salicylate < 1.0 mg/dL (2-20)
[2025-03-27 16:37] LABS: Troponin I < 0.012 ng/mL (0.000-0.034)
[2025-03-27 16:55] LABS: Thyroid Stimulating Hormone 1.220 uIU/mL (0.465-4.680)
[2025-03-27 17:15] LABS: Cannabinoid Screen Urine Positive (Negative)
[2025-03-27 20:50] VITALS: BP 122/81; PULSE 80; RESP 18; TEMP 36.6; O2SAT 100
== END 2025-03-27 20:58 | disposition home or self-care (01) ==
PROVIDERS: Emergency Medicine; Emergency Provider Registered Nurse; PCP Student in an Organized Health Care Education/Training Program
DX: F41.9 Anxiety disorder, unspecified (principal); F51.05 Insomnia due to other mental disorder; F84.0 Autistic disorder; F32.A Depression, unspecified; Z98.84 Bariatric surgery status; E28.2 Polycystic ovarian syndrome; Z79.899 Other long term (current) drug therapy
CPT/HCPCS: 36415; 70450; 71046; 80053; 80143; 80179; 80307; 81003; 81025; 82077; 84443; 84484; 85025; 93005; 99284; A9270